=== PATIENT | female | born 1975 | race Caucasian/White ===

== ENCOUNTER 2019-03-26 23:27 | Inpatient (IN) | payer OTHER, SELFPAY ==
[2019-03-26] MEDS ORDERED: Adacel (T-DAP) 0.5 ML SYRINGE ONE (23:40)
[2019-03-26] MEDS ORDERED: Morphine 4 MG/ML VIAL ONE (23:40)
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
[2019-03-27 00:07] LABS: #Basophils 0.1 thou/uL (0.0-0.2); #Eosinphils 0.1 thou/uL (0.0-0.7); #Lymphocytes 3.2 thou/uL (1.20-3.40); #Neutrophils 13.2 thou/uL (1.40-6.50); %Basophils 0.4 % (0.0-1.0); %Eosinophils 0.4 % (0.0-10.0); %Monocytes 5.9 % (0.0-10.0); %Neutrophils 75.2 % (42.0-75.0); Hemoglobin 12.8 g/dL (12.0-16.0); Mean Corpuscular HGB CONC 35.5 g/dL (32.0-36.0); Mean Corpuscular Hemoglobin 31.8 pg (27.0-31.0); Mean Corpuscular Volume 89.6 fL (78.0-98.0); Mean Platelet Volume 6.9 fL (7.4-10.4); Platelet Count 328 thou/uL (130-400); Red Blood Cell (RBC) Count 4.03 mill/uL (4.20-5.40); White Blood Cell (WBC) Count 17.5 thou/uL (4.8-10.8)
[2019-03-27 00:11] LABS: BHCG - Serum Negative (NEGATIVE); Pregs Control Background? CLEAR/WHITE (CLR/WHITE); Pregs Control Bar Appear? YES (CONTROL BAR)
[2019-03-27 00:26] LABS: ALT (SGPT) 14 U/L (8-55); AST (SGOT) 21 U/L (5-34); Albumin 4.4 g/dL (3.5-5.0); Alkaline Phosphatase 45 U/L (40-150); Anion Gap 17 mmol/L (10-20); BUN (Urea Nitrogen) 12 mg/dL (7.0-18.7); Bilirubin, Total 0.2 mg/dL (0.2-1.2); Calc. Creatinine Clearance 0 mL/min (70-130); Calcium 9.1 mg/dL (7.8-10.44); Carbon Dioxide 20 mmol/L (22-29); Chloride 107 mmol/L (98-107); Estimated GFR-MDRD 69; Globulin 2.8 g/dL (2.4-3.5); Glucose 104 mg/dL (70-105); Potassium 3.6 mmol/L (3.5-5.1); Protein, Total 7.2 g/dL (6.0-8.3); Sodium 140 mmol/L (136-145)
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
[2019-03-27] MEDS ORDERED: Ondansetron ODT 4 MG TAB PO PRN (01:55)
[2019-03-27] MEDS ORDERED: Dextrose 50% Abboject 50 ML SYRINGE SLOW IVP PRN (01:55)
[2019-03-27] MEDS ORDERED: Promethazine HCl 25 MG/ML VIAL IM PRN ×3 (01:55→09:40)
[2019-03-27] MEDS ORDERED: Dextrose 5% in Water 1,000 ML IV PRN (01:55)
[2019-03-27] MEDS ORDERED: Ondansetron PF 4 MG/2 ML Vial IVP PRN (01:55)
[2019-03-27] MEDS ORDERED: Acetaminophen 1,000 MG in Premix Bag 1 BAG IVPB SCH ×2 (02:30→09:00)
[2019-03-27] MEDS ORDERED: Ketorolac Tromethamine 30 MG/ML VIAL IVP SCH ×2 (02:45→09:00)
[2019-03-27] MEDS: Morphine 2 MG/ML SYRINGE SLOW IVP PRN ×2 (02:53→19:08)
[2019-03-27] MEDS: Cyclobenzaprine 10 MG TAB PO PRN ×2 (02:54→16:36)
[2019-03-27] MEDS: Sodium Chloride 0.9% 1,000 ML IV SCH ×2 (02:56→15:07)
[2019-03-27 05:32] LABS: #Lymphocytes 1.6 thou/uL (1.20-3.40); #Monocytes 0.9 thou/uL (0.11-0.59); #Neutrophils 11.5 thou/uL (1.40-6.50); %Basophils 0.2 % (0.0-1.0); %Eosinophils 0.2 % (0.0-10.0); %Lymphocytes 11.6 % (21.0-51.0); %Monocytes 6.4 % (0.0-10.0); %Neutrophils 81.6 % (42.0-75.0); Hemoglobin 11.4 g/dL (12.0-16.0); Mean Corpuscular HGB CONC 34.8 g/dL (32.0-36.0); Mean Corpuscular Hemoglobin 31.1 pg (27.0-31.0); Mean Corpuscular Volume 89.6 fL (78.0-98.0); Mean Platelet Volume 6.9 fL (7.4-10.4); Platelet Count 311 thou/uL (130-400); RBC Distribution Width 11.1 % (11.5-14.5); Red Blood Cell (RBC) Count 3.67 mill/uL (4.20-5.40); White Blood Cell (WBC) Count 14.1 thou/uL (4.8-10.8)
[2019-03-27 05:46] LABS: Anion Gap 12 mmol/L (10-20); BUN (Urea Nitrogen) 11 mg/dL (7.0-18.7); Calc. Creatinine Clearance 0 mL/min (70-130); Calcium 8.7 mg/dL (7.8-10.44); Carbon Dioxide 24 mmol/L (22-29); Chloride 105 mmol/L (98-107); Estimated GFR-MDRD 76; Glucose 127 mg/dL (70-105); Potassium 4.4 mmol/L (3.5-5.1); Sodium 137 mmol/L (136-145)
[2019-03-27] MEDS ORDERED: CEFAZOLIN 1 GM VIAL SLOW IVP SCH (06:00)
[2019-03-27 06:43] VITALS: BMI 22.3
[2019-03-27] MEDS ORDERED: Fentanyl 100 MCG/2 ML VIAL ONE ×2 (06:57→07:53)
[2019-03-27] MEDS ORDERED: Midazolam HCl 2 mg/2 ml Vial ONE (06:57)
[2019-03-27] MEDS ORDERED: Lidocaine 2% Jelly 5 ML TUBE ONE (06:57)
[2019-03-27] MEDS ORDERED: CEFAZOLIN 2 GM in Premix Bag 1 BAG IVPB SCH (07:30)
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
[2019-03-27] MEDS: Acetaminophen 500 MG TAB PO SCH ×3 (07:57→21:53)
[2019-03-27] MEDS: Famotidine 20 MG TAB PO SCH ×2 (07:57→21:53)
[2019-03-27] MEDS ORDERED: ceFAZolin 1 GM/D5W 1 GM in Premix Bag 1 BAG IVPB SCH (08:00)
[2019-03-27] MEDS ORDERED: Promethazine HCl 25 MG/ML VIAL SLOW IVP PRN (09:40)
[2019-03-27] MEDS ORDERED: Ondansetron HCl/PF 4 MG/2 ML Vial IVP PRN (09:40)
[2019-03-27] MEDS ORDERED: Lidocaine 1% PF 5 ML VIAL ONE (10:20)
[2019-03-27] MEDS ORDERED: Succinylcholine Chloride 20 MG/ML 10 ml SYRINGE FS ONE (10:20)
[2019-03-27] MEDS ORDERED: Ondansetron PF 4 MG/2 ML Vial ONE (10:20)
[2019-03-27] MEDS ORDERED: PROPOFOL 200 MG/20 ML VIAL ONE (10:20)
[2019-03-27] MEDS ORDERED: Dexamethasone 20 MG/5 ML VIAL ONE (10:20)
--- NOTE | 2019-03-27 11:35 | OP ---
DATE OF PROCEDURE: 03/27/2019 PREOPERATIVE DIAGNOSIS: Open right fibular fracture. POSTOPERATIVE DIAGNOSIS: Open right fibular fracture with peroneus longus tendon disruption. ANESTHESIA: General. BLOOD LOSS: About 100. SPECIMENS: None. DRAINS: None. COMPLICATIONS: None. DESCRIPTION OF PROCEDURE: The patient was taken to the operating room, where general anesthesia was induced. She received Ancef preoperatively. Right leg was prepped and draped in the usual sterile fashion. I did not use the tourniquet, although it was put on the leg. I debrided areas of skin, which had become discolored and dusky and appeared like there would be nonviable. There was fat protruding from the wound. I removed fat and removed some muscular tissue, which had questionable viability and I exposed the fibula. There was a little bit of contamination of fibula. I used a rongeur to nibble off the ends of the fibular fracture proximally and distally. I then used 2 large bags of pulsatile lavage irrigation to make sure there was no further debris in the wound. I explored the wound and found the peroneus longus tendon was ruptured. I repaired this using #2-0 Ethibond in a modified Wu-type stitch with a good end-to-end repair. I then performed a multilayered complex closure of this laceration. Unfortunately, after my debridement, there was an area about 2 x 4 cm still open, which could not be closed. Postoperative plan is for wound VAC for a few days. We will consult Dr. Adiel Christine for possible split-thickness skin graft. She has fractures extending down towards her ankle joint. These can be treated without any internal fixation. She will be immobilized in a boot or a splint for the next at least 3 months. Job ID: [id number]
[2019-03-27] MEDS ORDERED: Ibuprofen 600 MG TAB PO PRN (13:15)
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
[2019-03-27] MEDS: traMADol HCl 50 MG TAB PO PRN ×2 (15:05→21:53)
[2019-03-27] MEDS: CEFAZOLIN 2 GM in Premix Bag 1 BAG IVPB SCH ×2 (16:26→23:44)
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
[2019-03-28] MEDS: Acetaminophen 500 MG TAB PO SCH ×4 (03:28→21:12)
[2019-03-28] MEDS: Thyroid 30 MG TAB PO SCH (06:55)
[2019-03-28] MEDS: CEFAZOLIN 2 GM in Premix Bag 1 BAG IVPB SCH ×2 (08:12→15:18)
[2019-03-28] MEDS: Famotidine 20 MG TAB PO SCH ×2 (08:17→21:12)
[2019-03-28] MEDS: Senokot S 8.6-50 MG TAB PO SCH ×2 (08:25→21:13)
[2019-03-28] MEDS ORDERED: Loratadine 10 MG TAB PO SCH (09:00)
[2019-03-28] MEDS: traMADol HCl 50 MG TAB PO PRN ×2 (11:39→19:21)
[2019-03-28] MEDS: Cyclobenzaprine 10 MG TAB PO PRN ×2 (11:41→21:13)
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
[2019-03-28] MEDS: Loratadine 10 MG TAB PO SCH (21:12)
[2019-03-29] MEDS: CEFAZOLIN 2 GM in Premix Bag 1 BAG IVPB SCH ×3 (00:46→16:30)
[2019-03-29] MEDS: traMADol HCl 50 MG TAB PO PRN ×3 (03:43→22:10)
[2019-03-29] MEDS: Acetaminophen 500 MG TAB PO SCH ×4 (03:43→20:50)
[2019-03-29] MEDS: Cyclobenzaprine 10 MG TAB PO PRN ×3 (05:34→21:22)
[2019-03-29] MEDS: Thyroid 30 MG TAB PO SCH (05:34)
[2019-03-29] MEDS: Senokot S 8.6-50 MG TAB PO SCH ×2 (08:29→20:50)
[2019-03-29] MEDS: Polyethylene Glycol 3350 17 GM Packet PO SCH (08:29)
[2019-03-29] MEDS: Famotidine 20 MG TAB PO SCH ×2 (08:29→20:50)
[2019-03-29] MEDS: Enoxaparin Sodium 40 MG/0.4 ML SYRINGE SC SCH (09:42)
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
[2019-03-29] MEDS: Morphine 2 MG/ML SYRINGE SLOW IVP PRN (17:12)
[2019-03-29] MEDS: Loratadine 10 MG TAB PO SCH (20:50)
[2019-03-30] MEDS: Acetaminophen 500 MG TAB PO SCH ×4 (02:59→20:13)
[2019-03-30] MEDS: Thyroid 30 MG TAB PO SCH (05:32)
[2019-03-30] MEDS: traMADol HCl 50 MG TAB PO PRN ×3 (05:32→20:14)
[2019-03-30] MEDS: Cyclobenzaprine 10 MG TAB PO PRN ×2 (09:29→17:45)
[2019-03-30] MEDS: Polyethylene Glycol 3350 17 GM Packet PO SCH (09:29)
[2019-03-30] MEDS: Senokot S 8.6-50 MG TAB PO SCH ×2 (09:29→20:13)
[2019-03-30] MEDS: Famotidine 20 MG TAB PO SCH ×2 (09:29→20:14)
--- NOTE | 2019-03-30 10:26 | PRG ---
DATE OF SERVICE: 03/30/2019 SUBJECTIVE: Ms. Carmona has no complaints. She is working on physical therapy. Dr. Christine is going to do washout, reexploration of this complex wound to her right lower extremity today. OBJECTIVE: VITAL SIGNS: She is afebrile. Vital signs are stable. ABDOMEN: Soft. CHEST: Clear. ASSESSMENT: Right lower extremity fracture with complex wound and exposed bone. PLAN: Dr. Christine to assess the wound in the operating room later on today. Job ID: [id number]
[2019-03-30] MEDS: Enoxaparin Sodium 40 MG/0.4 ML SYRINGE SC SCH (11:38)
[2019-03-30] MEDS: Loratadine 10 MG TAB PO SCH (20:14)
[2019-03-31] MEDS: Acetaminophen 500 MG TAB PO SCH ×3 (02:31→14:28)
[2019-03-31] MEDS: traMADol HCl 50 MG TAB PO PRN ×3 (02:32→15:48)
[2019-03-31] MEDS: Thyroid 30 MG TAB PO SCH (06:04)
[2019-03-31] MEDS: Cyclobenzaprine 10 MG TAB PO PRN ×2 (06:05→14:28)
[2019-03-31] MEDS: Polyethylene Glycol 3350 17 GM Packet PO SCH (09:01)
[2019-03-31] MEDS: Enoxaparin Sodium 40 MG/0.4 ML SYRINGE SC SCH (09:02)
[2019-03-31] MEDS: Famotidine 20 MG TAB PO SCH (09:02)
[2019-03-31] MEDS: Senokot S 8.6-50 MG TAB PO SCH (09:02)
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
[2019-03-31] MEDS ORDERED: Lidocaine 1% PF 5 ML VIAL ONE (13:59)
[2019-03-31] MEDS ORDERED: Dexamethasone 20 MG/5 ML VIAL ONE (13:59)
[2019-03-31] MEDS ORDERED: Ondansetron PF 4 MG/2 ML Vial ONE (13:59)
[2019-03-31] MEDS ORDERED: PROPOFOL 200 MG/20 ML VIAL ONE (13:59)
[2019-03-31] MEDS ORDERED: Ketorolac Tromethamine 30 MG/ML VIAL ONE (13:59)
[2019-03-31] MEDS ORDERED: Bupivacaine PF 0.5% 30 ML VIAL ONE (19:51)
[2019-03-31] MEDS ORDERED: Sodium Chloride 0.9% 10 ML ONE (19:52)
[2019-03-31] MEDS ORDERED: Thrombin 5000 UNITS/5 ML VIAL ONE ×2 (19:52→21:52)
[2019-03-31] MEDS ORDERED: Bacitracin Zinc Ointment 30 gm TUBE ONE (19:52)
[2019-03-31] MEDS ORDERED: Morphine 4 MG/ML VIAL ONE (20:21)
[2019-03-31] MEDS ORDERED: Fentanyl 100 MCG/2 ML VIAL ONE ×2 (22:43→23:57)
[2019-03-31] MEDS ORDERED: Neomycin-Polymyxin 1 ML AMP ONE (23:11)
[2019-04-01] MEDS ORDERED: Meperidine HCl/PF 25 MG/ML VIAL SLOW IVP PRN (00:29)
[2019-04-01] MEDS ORDERED: Morphine Sulfate 2 MG/ML SYRINGE SLOW IVP PRN (00:29)
[2019-04-01] MEDS ORDERED: Ondansetron HCl/PF 4 MG/2 ML Vial IVP PRN (00:29)
[2019-04-01] MEDS ORDERED: Promethazine HCl 25 MG/ML VIAL SLOW IVP PRN (00:29)
[2019-04-01] MEDS ORDERED: HYDROmorphone 2 MG/ML VIAL SLOW IVP PRN (00:29)
[2019-04-01] MEDS ORDERED: Promethazine HCl 25 MG/ML VIAL IM PRN (00:29)
[2019-04-01] MEDS ORDERED: PACU-Morphine 4MG/ML VIAL SLOW IVP PRN (00:29)
[2019-04-01] MEDS ORDERED: Fentanyl 100 MCG/2 ML VIAL ONE ×2 (00:36→00:55)
[2019-04-01] MEDS ORDERED: Promethazine HCl 25 MG/ML VIAL ONE (00:47)
[2019-04-01] MEDS: Acetaminophen 500 MG TAB PO SCH ×5 (01:37→23:58)
[2019-04-01] MEDS: Famotidine 20 MG TAB PO SCH (01:43)
[2019-04-01] MEDS: Loratadine 10 MG TAB PO SCH ×2 (01:44→20:20)
[2019-04-01] MEDS: Senokot S 8.6-50 MG TAB PO SCH ×3 (01:44→20:20)
[2019-04-01] MEDS: Morphine 2 MG/ML SYRINGE SLOW IVP PRN (02:04)
[2019-04-01] MEDS: Cyclobenzaprine 10 MG TAB PO PRN ×2 (04:09→10:33)
[2019-04-01] MEDS: CEFAZOLIN 1 GM in Sodium Chloride 0.9% 100 ML IVPB SCH ×3 (06:23→17:23)
[2019-04-01] MEDS: Thyroid 30 MG TAB PO SCH (06:23)
[2019-04-01] MEDS: Milk Of Magnesia 30 ML UDCUP PO SCH (07:15)
[2019-04-01] MEDS: Polyethylene Glycol 3350 17 GM Packet PO SCH (08:41)
[2019-04-01] MEDS: Enoxaparin Sodium 40 MG/0.4 ML SYRINGE SC SCH (08:44)
[2019-04-01] MEDS: Bisacodyl 10 MG SUPP PR SCH (08:45)
[2019-04-01] MEDS: traMADol HCl 50 MG TAB PO PRN (08:59)
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
[2019-04-01] MEDS: traMADol HCl 50 MG TAB PO SCH ×3 (12:42→23:58)
[2019-04-01] MEDS: Ibuprofen 600 MG TAB PO SCH ×2 (14:24→22:21)
[2019-04-01] MEDS: Gabapentin 300 MG CAP PO SCH ×2 (14:26→20:20)
[2019-04-01] MEDS ORDERED: Atorvastatin Calcium 10 MG TAB PO SCH (21:00)
[2019-04-02 04:20] VITALS: TEMP 98.7
[2019-04-02] MEDS: Acetaminophen 500 MG TAB PO SCH ×2 (05:09→12:13)
[2019-04-02] MEDS: traMADol HCl 50 MG TAB PO SCH ×2 (05:10→12:13)
[2019-04-02] MEDS: Ibuprofen 600 MG TAB PO SCH (05:11)
[2019-04-02] MEDS: Thyroid 30 MG TAB PO SCH (05:11)
[2019-04-02 07:59] VITALS: BP 119/79
[2019-04-02] MEDS: Enoxaparin Sodium 40 MG/0.4 ML SYRINGE SC SCH (08:17)
[2019-04-02] MEDS: Bisacodyl 10 MG SUPP PR SCH (08:17)
[2019-04-02] MEDS: Gabapentin 300 MG CAP PO SCH (08:18)
[2019-04-02] MEDS: Senokot S 8.6-50 MG TAB PO SCH (08:18)
[2019-04-02] MEDS: Polyethylene Glycol 3350 17 GM Packet PO SCH (08:18)
[2019-04-02] MEDS: Milk Of Magnesia 30 ML UDCUP PO SCH (08:21)
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
--- NOTE | 2019-04-03 11:50 | OP ---
DATE OF PROCEDURE: 03/31/2019 The surgery started on 03/30/2019 and ended on 03/31/2019. POSTOPERATIVE DIAGNOSIS: Right leg wound, complex. POSTOPERATIVE DIAGNOSIS: Right leg wound, complex. FINDINGS: Almost 8 x 3 cm wound. PROCEDURE PERFORMED: 1. Debridement of wound with closure of 8 cm and relocation of flap from more dorsal and distal. 2. Split-thickness skin graft, 7 x 3 cm from the ipsilateral right thigh. 3. Application of leg splint. TOURNIQUET TIME: None. ESTIMATED BLOOD LOSS: 10 mL. SPECIMENS: None. INDICATION: The patient had had open fibula fracture, treated in excellent fashion by my partner, Dr. Chaudhari, and wound was complex, could not be closed without undue tension, so we were consulted. We evaluated the wound. No gross infection found. Muscle appeared viable, but indeed there was absence of dermis and epidermis over the region described above. Thus, the procedure was indicated. DESCRIPTION OF PROCEDURE: After successful general endotracheal anesthesia, limb was prepped and draped. We then performed a time-out and the listed procedure matched the site, side, and procedure in the chart and on the consent. We then removed the sutures, inspected the underlying flap. We performed a small amount of wound edge debridement using excisional technique. Instrumentation used was 11 blade knife, Sigourney blade knife, tenotomy scissors, Adson's, curette, and 1 L of irrigation bulb syringe with antibiotics inside. The depth was down to include the fascia, but not to bone. We then took the flap, reclosed the 8 cm wound portion that could be closed without an undue tension and now slightly increased the wound size. Underlying muscle was viable, so there was no exposed bone, so we felt skin graft was indicated. We then made a measurement, outlined a graft on the anterior lateral thigh just beginning 10 cm above the patella going proximally. We used a power dermatome set at 0.020 thickness and performed the graft. We then covered the donor site with thrombin and Gelfoam, and then Tegaderm and Amor wrap. We then meshed it to 1 to 1.5, placed it over the area. We used appropriate gordon center to allow it to have benefit. We then bolstered this with bacitracin and Adaptic and stapled down ABD that was mineral oil soaked. Bulky dressing was applied, 4x4, Kerlix, and then we placed her in the splint, ankle in neutral position posterior. She left the operating room without evidence of anesthetic or operative complications. Job ID: [id number]
== END 2019-04-02 12:45 | disposition home or self-care (01) | DRG 464 ==
LOC: ERS 23:27 → SURG A 03-27 00:25
PROVIDERS: ADMIT Specialist; ATTEND Specialist
PROC: 0LQN0ZZ Repair Right Lower Leg Tendon, Open Approach (ICD-10-PCS; 2019-03-27)
PROC: 2W3QX1Z Immobilization of Right Lower Leg using Splint (ICD-10-PCS; 2019-03-27)
PROC: 0HXKXZZ Transfer Right Lower Leg Skin, External Approach (ICD-10-PCS; principal; 2019-03-31)
PROC: 0JBN0ZZ Excision of Right Lower Leg Subcutaneous Tissue and Fascia, Open Approach (ICD-10-PCS; 2019-03-31)
DX: S82.401A Unspecified fracture of shaft of right fibula, initial encounter for closed fracture (principal); T81.30XA Disruption of wound, unspecified, initial encounter; E03.9 Hypothyroidism, unspecified; E78.5 Hyperlipidemia, unspecified; J30.2 Other seasonal allergic rhinitis; Y92.9 Unspecified place or not applicable; Z98.51 Tubal ligation status; Z90.49 Acquired absence of other specified parts of digestive tract; Z88.1 Allergy status to other antibiotic agents; V86.69XA Passenger of other special all-terrain or other off-road motor vehicle injured in nontraffic accident, initial encounter; Z88.8 Allergy status to other drugs, medicaments and biological substances; Z79.2 Long term (current) use of antibiotics; Z79.82 Long term (current) use of aspirin; Y83.8 Other surgical procedures as the cause of abnormal reaction of the patient, or of later complication, without mention of misadventure at the time of the procedure
CPT/HCPCS: 36415; 80048; 80053; 80307; 84703; 85025; 86850; 86900; 86901; 90471; 90715; 93005; 94760; 96365; 96375; G0390; J0131; J0690; J1100; J1650; J1885; J2001; J2250; J2270; J2405; J2550; J2704; J3010; J3490; S0020

== ENCOUNTER 2019-04-08 21:58 | Inpatient (IN) | payer SELFPAY ==
[2019-04-08 22:49] LABS: #Basophils 0.1 thou/uL (0.0-0.2); #Eosinphils 0.2 thou/uL (0.0-0.7); #Lymphocytes 2.3 thou/uL (1.20-3.40); #Monocytes 0.7 thou/uL (0.11-0.59); #Neutrophils 5.9 thou/uL (1.40-6.50); %Basophils 0.7 % (0.0-1.0); %Eosinophils 1.7 % (0.0-10.0); %Lymphocytes 25.6 % (21.0-51.0); %Monocytes 7.3 % (0.0-10.0); %Neutrophils 64.7 % (42.0-75.0); Hemoglobin 10.8 g/dL (12.0-16.0); Mean Corpuscular HGB CONC 34.8 g/dL (32.0-36.0); Mean Corpuscular Hemoglobin 30.7 pg (27.0-31.0); Mean Corpuscular Volume 88.2 fL (78.0-98.0); Mean Platelet Volume 6.1 fL (7.4-10.4); Platelet Count 453 thou/uL (130-400); RBC Distribution Width 10.9 % (11.5-14.5); Red Blood Cell (RBC) Count 3.52 mill/uL (4.20-5.40); White Blood Cell (WBC) Count 9.1 thou/uL (4.8-10.8)
[2019-04-08] MEDS ORDERED: Piperacillin/Tazobactam 4.5 GM VIAL ONE (23:09)
[2019-04-08 23:18] LABS: ALT (SGPT) 19 U/L (8-55); AST (SGOT) 21 U/L (5-34); Albumin 4.2 g/dL (3.5-5.0); Alkaline Phosphatase 59 U/L (40-150); Anion Gap 16 mmol/L (10-20); BUN (Urea Nitrogen) 11 mg/dL (7.0-18.7); Bilirubin, Total 0.3 mg/dL (0.2-1.2); Calc. Creatinine Clearance 0 mL/min (70-130); Calcium 9.6 mg/dL (7.8-10.44); Carbon Dioxide 23 mmol/L (22-29); Chloride 103 mmol/L (98-107); Estimated GFR-MDRD 66; Globulin 3.1 g/dL (2.4-3.5); Glucose 93 mg/dL (70-105); Potassium 4.3 mmol/L (3.5-5.1); Protein, Total 7.3 g/dL (6.0-8.3); Sodium 138 mmol/L (136-145)
--- NOTE | 2019-04-08 23:41 | ULT ---
RIGHT LOWER EXTREMITY VENOUS DUPLEX EXAM: 04/08/19 HISTORY: Right lower leg redness, pain and edema. Real time color Doppler evaluation of the right lower extremity was performed from groin to calf incl uding evaluation of area of patient's pain in the calf which shows some edema change. The common femo ral superficial and profunda femoral, saphenous, popliteal, and posterior tibial veins are normal in appearance. There is normal compressibility and augmentation. IMPRESSION: No evidence of DVT of the right lower extremity. POS: OFF
[2019-04-09] MEDS ORDERED: Morphine 4 MG/ML VIAL ONE
[2019-04-09] MEDS ORDERED: Morphine 4 MG/ML VIAL SLOW IVP PRN ×2 (02:04→05:26)
[2019-04-09] MEDS ORDERED: Sodium Chloride 0.9% 1,000 ML IV SCH (02:15)
[2019-04-09 02:37] VITALS: BMI 24.7
[2019-04-09] MEDS ORDERED: Ibuprofen 600 MG TAB PO PRN (05:26)
[2019-04-09] MEDS: Acetaminophen 500 MG TAB PO SCH ×4 (05:42→23:51)
[2019-04-09] MEDS ORDERED: Piperacillin/Tazobactam 3.375 GM in Sodium Chloride 0.9% 100 ML IVPB SCH (06:00)
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
[2019-04-09] MEDS: Aspirin Chewable 81 MG TAB PO SCH ×2 (08:44→20:50)
[2019-04-09] MEDS: Polyethylene Glycol 3350 17 GM Packet PO SCH (08:44)
[2019-04-09] MEDS: Gabapentin 300 MG CAP PO SCH ×3 (08:44→20:50)
[2019-04-09] MEDS: Thyroid 30 MG TAB PO SCH (08:47)
[2019-04-09] MEDS: Cyclobenzaprine 10 MG TAB PO PRN (08:55)
[2019-04-09] MEDS ORDERED: Vancomycin HCl 1 GM in Premix Bag 1 BAG IVPB SCH (11:00)
[2019-04-09] MEDS: Vancomycin HCl 750 MG in Sodium Chloride 0.9% 250 ML 250 ML IVPB SCH ×2 (12:02→23:51)
[2019-04-09] MEDS: traMADol HCl 50 MG TAB PO PRN ×3 (13:08→23:50)
[2019-04-09] MEDS: Piperacillin/Tazobactam 4.5 GM in Sodium Chloride 0.9% 100 ML IVPB SCH ×2 (16:31→20:51)
[2019-04-09] MEDS: Ibuprofen 200 MG TAB PO PRN (16:34)
[2019-04-09] MEDS ORDERED: Fiorinal 325/50/40 mg Tablet PO PRN (17:56)
--- NOTE | 2019-04-09 17:59 | PDOC.PN ---
- Subjective Encounter Start Date: 04/09/19 Encounter Start Time: 14:20 Ms. Carmona was seen today in follow-up of cellulitis of the right lower extremity. She notes some pain in the right leg and ankle- from the fracture, but also has a headache. Otherwise no complaints. - Objective MAR Reviewed: Yes Vital Signs & Weight: Vital Signs (12 hours) Temp Pulse Resp BP Pulse Ox 04/09/19 16:51 98.9 F 86 14 117/75 94 L 04/09/19 12:20 98.8 F 82 16 114/75 98 04/09/19 08:29 98.3 F 77 16 109/72 98 04/09/19 08:00 98 Weight Weight 140 lb I&O: 04/08/19 04/09/19 04/10/19 06:59 06:59 06:59 Intake Total 440 Balance 440 Result Diagrams: 04/08/19 22:24 04/08/19 22:24 Phys Exam - Physical Examination HEENT: PERRLA Respiratory: no wheezing, no rales, no rhonchi, clear to auscultation bilateral Cardiovascular: RRR, no significant murmur, no rub Gastrointestinal: soft, non-tender, no distention, positive bowel sounds Musculoskeletal: pulses present, edema present + swelling and erythema of the dorsum of the right foot + sweling of the right calf, no obvious drainage Dx/Plan (1) Cellulitis of leg, right Code(s): L03.115 - CELLULITIS OF RIGHT LOWER LIMB Status: Acute (2) Right tibial fracture Code(s): S82.201A - UNSP FRACTURE OF SHAFT OF RIGHT TIBIA, INIT FOR CLOS FX Status: Acute (3) Hypothyroidism Code(s): E03.9 - HYPOTHYROIDISM, UNSPECIFIED Status: Acute - Plan * Cellulitis of the right lower extremity- will continue Vancomycin and Zosyn ( wound culture is growing a gram negative organism ) * Await evaluation from Dr. Christine * Headache- may be related to morphine- will give a trial of Fiorinal * Hypothyroidism- she appears clinically euthyroid- will continue [place] thyroid.
[2019-04-09] MEDS: Simvastatin 20 MG TAB PO SCH (20:50)
[2019-04-10] MEDS ORDERED: Senokot S 8.6-50 MG TAB PO SCH (00:15)
[2019-04-10] MEDS: Ibuprofen 200 MG TAB PO PRN ×2 (03:18→15:05)
[2019-04-10] MEDS: Piperacillin/Tazobactam 4.5 GM in Sodium Chloride 0.9% 100 ML IVPB SCH ×4 (03:18→20:42)
[2019-04-10] MEDS: Cyclobenzaprine 10 MG TAB PO PRN ×2 (03:18→15:05)
[2019-04-10] MEDS: traMADol HCl 50 MG TAB PO PRN ×3 (05:56→21:24)
[2019-04-10] MEDS: Acetaminophen 500 MG TAB PO SCH ×4 (05:57→21:23)
[2019-04-10] MEDS: Aspirin Chewable 81 MG TAB PO SCH ×2 (08:11→20:41)
[2019-04-10] MEDS: Polyethylene Glycol 3350 17 GM Packet PO SCH (08:11)
[2019-04-10] MEDS: Thyroid 30 MG TAB PO SCH (08:12)
[2019-04-10] MEDS: Gabapentin 300 MG CAP PO SCH ×3 (08:12→20:42)
[2019-04-10 09:39] LABS: #Eosinphils 0.2 thou/uL (0.0-0.7); #Lymphocytes 1.8 thou/uL (1.20-3.40); #Monocytes 0.6 thou/uL (0.11-0.59); #Neutrophils 4.4 thou/uL (1.40-6.50); %Basophils 0.1 % (0.0-1.0); %Eosinophils 2.8 % (0.0-10.0); %Lymphocytes 26.1 % (21.0-51.0); %Monocytes 8.2 % (0.0-10.0); %Neutrophils 62.8 % (42.0-75.0); Hemoglobin 9.9 g/dL (12.0-16.0); Mean Corpuscular HGB CONC 34.3 g/dL (32.0-36.0); Mean Corpuscular Hemoglobin 30.9 pg (27.0-31.0); Mean Corpuscular Volume 90.2 fL (78.0-98.0); Platelet Count 410 thou/uL (130-400); RBC Distribution Width 10.9 % (11.5-14.5); Red Blood Cell (RBC) Count 3.21 mill/uL (4.20-5.40); White Blood Cell (WBC) Count 7.1 thou/uL (4.8-10.8)
[2019-04-10] MEDS: Vancomycin HCl 1.25 GM in Sodium Chloride 0.9% 250 ML 250 ML IVPB SCH (11:41)
[2019-04-10] MEDS ORDERED: Ondansetron PF 4 MG/2 ML Vial ONE (13:45)
[2019-04-10] MEDS ORDERED: Dexamethasone 20 MG/5 ML VIAL ONE (13:45)
[2019-04-10] MEDS ORDERED: Ketorolac Tromethamine 30 MG/ML VIAL ONE (13:45)
[2019-04-10] MEDS ORDERED: PROPOFOL 200 MG/20 ML VIAL ONE (13:45)
--- NOTE | 2019-04-10 17:24 | PDOC.PN ---
- Subjective Encounter Start Date: 04/10/19 Encounter Start Time: 17:00 Subjective: f/u for RLE cellulitis on Zosyn/Vancomycin. Plan for debridement -: today per Ortho surgery. Feels much better overall. - Objective MAR Reviewed: Yes Vital Signs & Weight: Vital Signs (12 hours) Temp Pulse Resp BP Pulse Ox 04/10/19 07:52 96.9 F L 84 16 120/75 97 Weight Weight 140 lb I&O: 04/09/19 04/10/19 04/11/19 06:59 06:59 06:59 Intake Total 680 Balance 680 Result Diagrams: 04/10/19 09:17 04/08/19 22:24 Additional Labs: Microbiology 04/08/19 22:40 Venous blood - Left Arm Blood Culture - Preliminary NO GROWTH AT 48 HOURS 04/08/19 22:40 Leg - Pending Bacterial Culture - Preliminary Aeromonas hydrophila/caviae Serratia marcescens 04/08/19 22:24 Venous blood - Right Arm Blood Culture - Preliminary NO GROWTH AT 48 HOURS Phys Exam - Physical Examination Constitutional: NAD HEENT: PERRLA, sclera anicteric, oral pharynx no lesions Neck: no nodes, no JVD, supple, full ROM Respiratory: no wheezing, no rales, no rhonchi, clear to auscultation bilateral S1, S2 Cardiovascular: RRR, no significant murmur, no rub, gallop Gastrointestinal: soft, non-tender, no distention, positive bowel sounds RLE with FABY wrap in place Musculoskeletal: no edema, pulses present Neurological: normal sensation, moves all 4 limbs Psychiatric: A&O x 3 Skin: normal turgor, cap refill <2 seconds Dx/Plan (1) Cellulitis of leg, right Code(s): L03.115 - CELLULITIS OF RIGHT LOWER LIMB Status: Acute Comment: Continue Vanc/Zosyn, local wound care, plan for debridement today (2) Right tibial fracture Code(s): S82.201A - UNSP FRACTURE OF SHAFT OF RIGHT TIBIA, INIT FOR CLOS FX Status: Acute Comment: Pain control, local WCT (3) Hypothyroidism Code(s): E03.9 - HYPOTHYROIDISM, UNSPECIFIED Status: Chronic Comment: Continue [place] Thyroid 30mg daily (4) Normocytic anemia Code(s): D64.9 - ANEMIA, UNSPECIFIED Status: Acute Comment: Stable currently , serial H/H - Plan continue antibiotics, social worker clinical Stable overall -: Plan for local debridement of RLE -: Pain control as clinically indicated -: Continue Vanc/Zosyn -: Appreciated Ortho assistance * .
[2019-04-10] MEDS ORDERED: Bupivacaine PF 0.5% 30 ML VIAL ONE (18:02)
[2019-04-10] MEDS ORDERED: Bacitracin Zinc Ointment 30 gm TUBE ONE (18:02)
[2019-04-10] MEDS ORDERED: Sodium Chloride 0.9% 30 ML ONE (18:02)
[2019-04-10] MEDS ORDERED: Sodium Chloride 0.9% 20 ML ONE (18:12)
[2019-04-10] MEDS ORDERED: Midazolam HCl 2 mg/2 ml Vial ONE (18:23)
[2019-04-10] MEDS ORDERED: Fentanyl 100 MCG/2 ML VIAL ONE ×2 (18:29→18:34)
[2019-04-10] MEDS ORDERED: Promethazine HCl 25 MG/ML VIAL ONE (18:35)
[2019-04-10] MEDS ORDERED: HYDROmorphone 2 MG/ML VIAL ONE (18:35)
[2019-04-10] MEDS ORDERED: Promethazine HCl 25 MG/ML VIAL IM PRN (19:47)
[2019-04-10] MEDS ORDERED: HYDROmorphone 2 MG/ML VIAL SLOW IVP PRN (19:47)
[2019-04-10] MEDS ORDERED: Ondansetron HCl/PF 4 MG/2 ML Vial IVP PRN (19:47)
[2019-04-10] MEDS ORDERED: Promethazine HCl 25 MG/ML VIAL SLOW IVP PRN (19:47)
[2019-04-10] MEDS ORDERED: PACU-Morphine 4MG/ML VIAL SLOW IVP PRN (19:47)
[2019-04-10] MEDS: Meperidine HCl/PF 25 MG/ML VIAL IM PRN (20:36)
[2019-04-10] MEDS: Simvastatin 20 MG TAB PO SCH (20:41)
[2019-04-11] MEDS: Ibuprofen 200 MG TAB PO PRN
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
[2019-04-11] MEDS: Piperacillin/Tazobactam 4.5 GM in Sodium Chloride 0.9% 100 ML IVPB SCH ×4 (03:09→19:36)
[2019-04-11] MEDS: Meperidine HCl/PF 25 MG/ML VIAL IM PRN ×2 (03:26→22:29)
[2019-04-11] MEDS: traMADol HCl 50 MG TAB PO PRN ×3 (05:43→17:52)
[2019-04-11] MEDS: Acetaminophen 500 MG TAB PO SCH ×3 (05:43→17:52)
[2019-04-11] MEDS: Gabapentin 300 MG CAP PO SCH ×3 (07:37→19:36)
[2019-04-11] MEDS: Polyethylene Glycol 3350 17 GM Packet PO SCH (07:37)
[2019-04-11] MEDS: Aspirin Chewable 81 MG TAB PO SCH ×2 (07:37→19:35)
[2019-04-11] MEDS: Thyroid 30 MG TAB PO SCH (07:37)
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
[2019-04-11] MEDS: Vancomycin HCl 1.25 GM in Sodium Chloride 0.9% 250 ML 250 ML IVPB SCH ×2 (11:43)
[2019-04-11] MEDS: Cyclobenzaprine 10 MG TAB PO PRN ×2 (16:41)
[2019-04-11] MEDS: Ondansetron ODT 4 MG TAB PO PRN (18:14)
[2019-04-11] MEDS: Simvastatin 20 MG TAB PO SCH (19:36)
[2019-04-12] MEDS: traMADol HCl 50 MG TAB PO PRN ×3 (00:24→15:14)
[2019-04-12] MEDS: Vancomycin HCl 1.25 GM in Sodium Chloride 0.9% 250 ML 250 ML IVPB SCH ×2 (00:26→12:05)
[2019-04-12] MEDS: Acetaminophen 500 MG TAB PO SCH ×4 (00:26→17:49)
[2019-04-12] MEDS: Piperacillin/Tazobactam 4.5 GM in Sodium Chloride 0.9% 100 ML IVPB SCH ×2 (02:37→08:23)
[2019-04-12] MEDS: Meperidine HCl/PF 25 MG/ML VIAL IM PRN ×3 (04:45→22:33)
[2019-04-12] MEDS: Aspirin Chewable 81 MG TAB PO SCH ×2 (08:22→19:50)
[2019-04-12] MEDS: Gabapentin 300 MG CAP PO SCH ×3 (08:23→19:50)
[2019-04-12] MEDS: Polyethylene Glycol 3350 17 GM Packet PO SCH (08:31)
[2019-04-12] MEDS: Thyroid 30 MG TAB PO SCH (08:50)
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
[2019-04-12] MEDS: Saccharomyces boulardii 250 MG CAP PO SCH (15:26)
[2019-04-12] MEDS ORDERED: Saccharomyces boulardii 250 MG CAP PO SCH (16:00)
[2019-04-12] MEDS: Simvastatin 20 MG TAB PO SCH (19:51)
[2019-04-12] MEDS: Ondansetron ODT 4 MG TAB PO PRN (21:30)
[2019-04-13 00:01] LABS: Vancomycin, Trough 15.2 ug/mL
[2019-04-13] MEDS: Acetaminophen 500 MG TAB PO SCH ×4 (00:18→19:20)
[2019-04-13] MEDS: Vancomycin HCl 1.25 GM in Sodium Chloride 0.9% 250 ML 250 ML IVPB SCH ×2 (00:18→14:03)
[2019-04-13] MEDS: Ondansetron ODT 4 MG TAB PO PRN (08:42)
[2019-04-13] MEDS: Gabapentin 300 MG CAP PO SCH ×3 (09:27→20:32)
[2019-04-13] MEDS: Thyroid 30 MG TAB PO SCH (09:27)
[2019-04-13] MEDS: Aspirin Chewable 81 MG TAB PO SCH ×2 (09:27→20:32)
[2019-04-13] MEDS: Polyethylene Glycol 3350 17 GM Packet PO SCH (09:27)
[2019-04-13] MEDS ORDERED: Promethazine 25 MG TAB PO PRN (14:33)
[2019-04-13] MEDS ORDERED: Scopolamine 1.5 mg/72 hour Patch TD SCH (20:00)
[2019-04-13] MEDS: Simvastatin 20 MG TAB PO SCH (20:32)
[2019-04-13] MEDS: Saccharomyces boulardii 250 MG CAP PO SCH (20:32)
[2019-04-13] MEDS: Cyclobenzaprine 10 MG TAB PO PRN (20:33)
[2019-04-13] MEDS: traMADol HCl 50 MG TAB PO PRN (20:33)
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
[2019-04-14] MEDS: Acetaminophen 500 MG TAB PO SCH ×4 (00:38→18:03)
[2019-04-14 05:40] LABS: #Eosinphils 0.2 thou/uL (0.0-0.7); #Lymphocytes 2.1 thou/uL (1.20-3.40); #Monocytes 0.6 thou/uL (0.11-0.59); #Neutrophils 4.4 thou/uL (1.40-6.50); %Basophils 0.6 % (0.0-1.0); %Eosinophils 2.6 % (0.0-10.0); %Lymphocytes 28.5 % (21.0-51.0); %Monocytes 7.8 % (0.0-10.0); %Neutrophils 60.6 % (42.0-75.0); Hemoglobin 10.6 g/dL (12.0-16.0); Mean Corpuscular HGB CONC 34.5 g/dL (32.0-36.0); Mean Corpuscular Hemoglobin 30.8 pg (27.0-31.0); Mean Corpuscular Volume 89.4 fL (78.0-98.0); Mean Platelet Volume 6.1 fL (7.4-10.4); Platelet Count 488 thou/uL (130-400); RBC Distribution Width 11.3 % (11.5-14.5); Red Blood Cell (RBC) Count 3.43 mill/uL (4.20-5.40); White Blood Cell (WBC) Count 7.3 thou/uL (4.8-10.8)
[2019-04-14] MEDS: Thyroid 30 MG TAB PO SCH (11:07)
[2019-04-14] MEDS: Saccharomyces boulardii 250 MG CAP PO SCH ×2 (11:07→21:07)
[2019-04-14] MEDS: Polyethylene Glycol 3350 17 GM Packet PO SCH (11:07)
[2019-04-14] MEDS: Gabapentin 300 MG CAP PO SCH ×3 (11:07→21:07)
[2019-04-14] MEDS: Aspirin Chewable 81 MG TAB PO SCH ×2 (11:07→21:07)
[2019-04-14] MEDS: Cyclobenzaprine 10 MG TAB PO PRN ×2 (13:54→21:07)
[2019-04-14] MEDS: Meperidine HCl/PF 25 MG/ML VIAL IM PRN (13:54)
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
[2019-04-14] MEDS: Simvastatin 20 MG TAB PO SCH (21:06)
[2019-04-14] MEDS: traMADol HCl 50 MG TAB PO PRN (21:07)
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
[2019-04-15] MEDS: Acetaminophen 500 MG TAB PO SCH ×5 (00:38→23:17)
[2019-04-15] MEDS: Meperidine HCl/PF 25 MG/ML VIAL IM PRN (02:19)
[2019-04-15] MEDS: Saccharomyces boulardii 250 MG CAP PO SCH ×2 (08:44→21:15)
[2019-04-15] MEDS: Gabapentin 300 MG CAP PO SCH ×3 (08:45→21:15)
[2019-04-15] MEDS: Polyethylene Glycol 3350 17 GM Packet PO SCH (08:45)
[2019-04-15] MEDS: Thyroid 30 MG TAB PO SCH (08:45)
[2019-04-15] MEDS ORDERED: Dexamethasone 20 MG/5 ML VIAL ONE (09:51)
[2019-04-15] MEDS ORDERED: PROPOFOL 200 MG/20 ML VIAL ONE (09:51)
[2019-04-15] MEDS ORDERED: Lidocaine 1% PF 5 ML VIAL ONE (09:51)
[2019-04-15] MEDS ORDERED: Ondansetron PF 4 MG/2 ML Vial ONE (09:51)
[2019-04-15] MEDS: Cyclobenzaprine 10 MG TAB PO PRN (10:34)
[2019-04-15] MEDS: traMADol HCl 50 MG TAB PO PRN ×2 (10:34→15:37)
[2019-04-15] MEDS: Aspirin Chewable 81 MG TAB PO SCH ×2 (12:08→21:15)
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
[2019-04-15] MEDS ORDERED: Bacitracin Zinc Ointment 30 gm TUBE ONE (17:01)
[2019-04-15] MEDS ORDERED: Bupivacaine PF 0.5% 30 ML VIAL ONE (17:01)
[2019-04-15] MEDS ORDERED: Thrombin 5000 UNITS/5 ML VIAL ONE (17:01)
[2019-04-15] MEDS ORDERED: Sodium Chloride 0.9% 30 ML ONE (17:01)
[2019-04-15] MEDS ORDERED: Fentanyl 100 MCG/2 ML VIAL ONE ×2 (17:28→19:37)
[2019-04-15] MEDS ORDERED: Midazolam HCl 2 mg/2 ml Vial ONE (17:28)
[2019-04-15] MEDS ORDERED: Tobramycin 80 MG/2 ML VIAL ONE ×2 (18:26→18:27)
[2019-04-15] MEDS ORDERED: Tobramycin Sulfate 1.2 GM VIAL ONE (18:26)
[2019-04-15] MEDS ORDERED: Promethazine HCl 25 MG/ML VIAL IM PRN (19:30)
[2019-04-15] MEDS ORDERED: Promethazine HCl 25 MG/ML VIAL SLOW IVP PRN (19:30)
[2019-04-15] MEDS ORDERED: Ondansetron HCl/PF 4 MG/2 ML Vial IVP PRN (19:30)
[2019-04-15] MEDS: Simvastatin 20 MG TAB PO SCH (21:15)
[2019-04-16] MEDS: traMADol HCl 50 MG TAB PO PRN ×3 (01:17→20:22)
--- NOTE | 2019-04-16 02:01 | OP ---
DATE OF PROCEDURE: 04/15/2019 PREOPERATIVE DIAGNOSIS: Right leg 18 x 7 cm wound with no gross infection. POSTOPERATIVE DIAGNOSIS: Right leg 18 x 7 cm wound with no gross infection. PROCEDURES PERFORMED: 1. Debridement of wound deep including wound, muscle, bone and old split-thickness skin graft. 2. Application of tobramycin beads dissolvable. 3. Application of wound VAC, Portillo and Nephew second-generation. SPECIMEN REMOVED: Culture wound and debridement. ESTIMATED FLUID LOSS: Less than 20 mL. TOURNIQUET TIME: None. FINDINGS: No gross infection in any layer. There was filled up muscle to cover the bone and there was no at this point exposed tendon. DESCRIPTION OF PROCEDURE: After successful general LMA technique, the limb was prepped and draped. Time-out was done appropriately. We prepped entire limb and it was prepared using a sterile tourniquet, but as soon as we unroofed the wound, we realized that the skin graft was necrotic. There was a 3 cm x 2 cm area of necrotic muscle had been removed, so it was not a completely clean wound. For this reason, we performed the debridement using the following techniques: 1. Excisional. 2. Depth was down to include bone where we used curette, [place] blade, 11 blade knife, tenotomy scissors, Adson's, Crile, hemostats, [place] clamps, and irrigation with 3 L normal saline and Pulsavac with antibiotics inside. 3. The depth was as listed down to include bone. 4. No gross infection. 5. It was excisional technique. Then, once the wound was clean, we obtained hemostasis, we then mixed on the back table tobramycin antibiotics into the dissolvable because she had a gram-negative Serratia marcescens sensitive to this antibiotic family. It was packed around the bone underneath the muscle and we just closed enough of that muscle flap to hold the antibiotic beads inside. We then placed a white sponge over the muscle and black sponge over the white sponge and had appropriately excellent suction with the Portillo and Nephew second generation VAC type system. A short-leg splint was applied and the patient left the operating room without evidence of anesthetic or operative complication. Job ID: [id number]
[2019-04-16] MEDS: Acetaminophen 500 MG TAB PO SCH ×3 (05:33→17:00)
[2019-04-16] MEDS: Cyclobenzaprine 10 MG TAB PO PRN ×3 (05:35→20:22)
[2019-04-16] MEDS: Gabapentin 300 MG CAP PO SCH ×3 (08:02→20:22)
[2019-04-16] MEDS: Aspirin Chewable 81 MG TAB PO SCH ×2 (08:02→20:22)
[2019-04-16] MEDS: Thyroid 30 MG TAB PO SCH (08:02)
[2019-04-16] MEDS: Saccharomyces boulardii 250 MG CAP PO SCH ×2 (08:02→20:22)
[2019-04-16] MEDS: Polyethylene Glycol 3350 17 GM Packet PO SCH (08:03)
--- NOTE | 2019-04-16 12:27 | PDOC.PN ---
- Subjective Encounter Start Date: 04/16/19 Encounter Start Time: 12:25 Subjective: Admitted with worsening right leg pain and swelling. -: Had R open fibular fracture with open wound s/p debridement and graft -: found to have wound infection nad cellulitis s/p debridement. Feeling zehra - Objective Vital Signs & Weight: Vital Signs (12 hours) Temp Pulse Resp BP Pulse Ox 04/16/19 08:02 97 04/16/19 07:34 98.3 F 79 18 101/59 L 97 04/16/19 01:10 76 108/60 Weight Admit Weight 140 lb Weight 140 lb I&O: 04/15/19 04/16/19 04/17/19 06:59 06:59 06:59 Intake Total 720 990 Balance 720 990 Result Diagrams: 04/14/19 04:55 04/08/19 22:24 Phys Exam - Physical Examination Constitutional: NAD HEENT: PERRLA, moist MMs Neck: no JVD, supple Respiratory: no wheezing, no rales, no rhonchi Cardiovascular: RRR, no significant murmur Gastrointestinal: soft, non-tender, no distention, positive bowel sounds Musculoskeletal: pulses present Right leg and foot covered with dressing/splint Neurological: non-focal, moves all 4 limbs Psychiatric: normal affect, A&O x 3 Dx/Plan (1) Wound infection Code(s): T14.8XXA - OTHER INJURY OF UNSPECIFIED BODY REGION, INITIAL ENCOUNTER; L08.9 - LOCAL INFECTION OF THE SKIN AND SUBCUTANEOUS TISSUE, UNSP Status: Acute (2) Cellulitis of leg, right Code(s): L03.115 - CELLULITIS OF RIGHT LOWER LIMB Status: Acute Comment: Continue Levaquin, s/p I&D due to abscess POD #5, superficial, deep and bone cx showing Serratia spp and aeromonas hydrophila, contine wound vac application, d/ c Vancomycin, plan for debridement 04/15/19 with resection of skin graft due to necrosis and application of abx beads in wound (3) Normocytic anemia Code(s): D64.9 - ANEMIA, UNSPECIFIED Status: Acute Comment: Stable currently , serial H/H (4) Open right fibular fracture Code(s): S82.401B - UNSP FRACTURE OF SHAFT OF R FIBULA, INIT FOR OPN FX TYPE I/ 2 Status: Acute Qualifiers: Fracture morphology: comminuted Comment: s/p open fibular fx s/p surgical decompression, local wound care, pain control, continue Levaquin with wound vac therapy, local WCT (5) Hypothyroidism Code(s): E03.9 - HYPOTHYROIDISM, UNSPECIFIED Status: Chronic Comment: Continue [place] Thyroid 30mg daily - Plan Continue current antibiotics. -: Get repeat CBC and BMP in the am. -: Analgesic as needed to continue. -: Debridement and wound care as per plastic. * .
[2019-04-16] MEDS: Scopolamine 1.5 mg/72 hour Patch TD SCH (12:58)
[2019-04-16] MEDS: Simvastatin 20 MG TAB PO SCH (20:22)
[2019-04-16 20:31] LABS: #Basophils 0.1 thou/uL (0.0-0.2); #Eosinphils 0.2 thou/uL (0.0-0.7); #Lymphocytes 3.6 thou/uL (1.20-3.40); #Monocytes 0.7 thou/uL (0.11-0.59); #Neutrophils 5.6 thou/uL (1.40-6.50); %Basophils 0.9 % (0.0-1.0); %Eosinophils 1.7 % (0.0-10.0); %Lymphocytes 35.2 % (21.0-51.0); %Monocytes 6.8 % (0.0-10.0); %Neutrophils 55.4 % (42.0-75.0); Hemoglobin 10.9 g/dL (12.0-16.0); Mean Corpuscular HGB CONC 34.3 g/dL (32.0-36.0); Mean Corpuscular Volume 90.4 fL (78.0-98.0); Mean Platelet Volume 6.2 fL (7.4-10.4); Platelet Count 543 thou/uL (130-400); RBC Distribution Width 11.5 % (11.5-14.5); Red Blood Cell (RBC) Count 3.54 mill/uL (4.20-5.40); White Blood Cell (WBC) Count 10.1 thou/uL (4.8-10.8)
[2019-04-16 20:50] LABS: Anion Gap 15 mmol/L (10-20); BUN (Urea Nitrogen) 15 mg/dL (7.0-18.7); Calc. Creatinine Clearance 73 mL/min (70-130); Calcium 9.4 mg/dL (7.8-10.44); Carbon Dioxide 24 mmol/L (22-29); Chloride 103 mmol/L (98-107); Estimated GFR-MDRD 61; Glucose 89 mg/dL (70-105); Potassium 3.8 mmol/L (3.5-5.1); Sodium 138 mmol/L (136-145)
[2019-04-17] MEDS: Acetaminophen 500 MG TAB PO SCH ×4 (00:34→17:12)
[2019-04-17] MEDS: traMADol HCl 50 MG TAB PO PRN ×3 (02:49→21:31)
[2019-04-17] MEDS: Cyclobenzaprine 10 MG TAB PO PRN ×3 (02:49→21:31)
[2019-04-17 06:31] LABS: #Basophils 0.1 thou/uL (0.0-0.2); #Eosinphils 0.2 thou/uL (0.0-0.7); #Lymphocytes 2.9 thou/uL (1.20-3.40); #Monocytes 0.5 thou/uL (0.11-0.59); #Neutrophils 3.3 thou/uL (1.40-6.50); %Basophils 0.7 % (0.0-1.0); %Eosinophils 2.3 % (0.0-10.0); %Lymphocytes 42.1 % (21.0-51.0); %Monocytes 6.6 % (0.0-10.0); %Neutrophils 48.3 % (42.0-75.0); Hemoglobin 9.9 g/dL (12.0-16.0); Mean Corpuscular Hemoglobin 31.8 pg (27.0-31.0); Mean Corpuscular Volume 90.9 fL (78.0-98.0); Mean Platelet Volume 6.2 fL (7.4-10.4); Platelet Count 437 thou/uL (130-400); RBC Distribution Width 11.4 % (11.5-14.5); White Blood Cell (WBC) Count 6.9 thou/uL (4.8-10.8)
[2019-04-17 06:50] LABS: Anion Gap 11 mmol/L (10-20); BUN (Urea Nitrogen) 16 mg/dL (7.0-18.7); Calc. Creatinine Clearance 84 mL/min (70-130); Carbon Dioxide 25 mmol/L (22-29); Chloride 105 mmol/L (98-107); Estimated GFR-MDRD 72; Glucose 78 mg/dL (70-105); Potassium 4.1 mmol/L (3.5-5.1); Sodium 137 mmol/L (136-145)
[2019-04-17] MEDS: Polyethylene Glycol 3350 17 GM Packet PO SCH (07:28)
[2019-04-17] MEDS: Thyroid 30 MG TAB PO SCH (08:20)
[2019-04-17] MEDS: Gabapentin 300 MG CAP PO SCH ×3 (08:20→20:41)
[2019-04-17] MEDS: Aspirin Chewable 81 MG TAB PO SCH ×2 (08:21→20:41)
[2019-04-17] MEDS: Saccharomyces boulardii 250 MG CAP PO SCH ×2 (08:21→20:41)
[2019-04-17] MEDS: Meperidine HCl/PF 25 MG/ML VIAL IM PRN (11:11)
[2019-04-17] MEDS ORDERED: LIDOCAINE HCL 4% Topical Sol (4 ML SOLN.PK.G.) TP PRN (11:58)
--- NOTE | 2019-04-17 12:02 | PDOC.PN ---
- Subjective Encounter Start Date: 04/17/19 Encounter Start Time: 12:01 Subjective: no new problem -: Remained afebrile. - Objective Vital Signs & Weight: Vital Signs (12 hours) Temp Pulse Resp BP Pulse Ox 04/17/19 08:00 98.4 F 62 18 113/63 97 Weight Admit Weight 140 lb Weight 140 lb I&O: 04/16/19 04/17/19 04/18/19 06:59 06:59 06:59 Intake Total 990 870 Balance 990 870 Result Diagrams: 04/17/19 05:57 04/17/19 05:57 Phys Exam - Physical Examination Constitutional: NAD HEENT: PERRLA, moist MMs Neck: no JVD, supple Respiratory: no wheezing, no rales, no rhonchi, clear to auscultation bilateral Cardiovascular: RRR Gastrointestinal: soft, non-tender, no distention, positive bowel sounds Musculoskeletal: pulses present right leg and foot covered with dressing Neurological: non-focal, moves all 4 limbs Psychiatric: normal affect, A&O x 3 Dx/Plan (1) Wound infection Code(s): T14.8XXA - OTHER INJURY OF UNSPECIFIED BODY REGION, INITIAL ENCOUNTER; L08.9 - LOCAL INFECTION OF THE SKIN AND SUBCUTANEOUS TISSUE, UNSP Status: Acute (2) Cellulitis of leg, right Code(s): L03.115 - CELLULITIS OF RIGHT LOWER LIMB Status: Acute Comment: Continue Levaquin, s/p I&D due to abscess POD #5, superficial, deep and bone cx showing Serratia spp and aeromonas hydrophila, contine wound vac application, d/ c Vancomycin, plan for debridement 04/15/19 with resection of skin graft due to necrosis and application of abx beads in wound (3) Normocytic anemia Code(s): D64.9 - ANEMIA, UNSPECIFIED Status: Acute Comment: Stable currently , serial H/H (4) Open right fibular fracture Code(s): S82.401B - UNSP FRACTURE OF SHAFT OF R FIBULA, INIT FOR OPN FX TYPE I/ 2 Status: Acute Qualifiers: Fracture morphology: comminuted Comment: s/p open fibular fx s/p surgical decompression, local wound care, pain control, continue Levaquin with wound vac therapy, local WCT (5) Hypothyroidism Code(s): E03.9 - HYPOTHYROIDISM, UNSPECIFIED Status: Chronic Comment: Continue [place] Thyroid 30mg daily - Plan Continue antibiotics and wound care. -: wound coverage with skin graft contemplated * .
[2019-04-17] MEDS: Simvastatin 20 MG TAB PO SCH (20:41)
--- NOTE | 2019-04-17 22:06 | PRG ---
DATE OF SERVICE: 04/17/2019 SUBJECTIVE: Feeling well. There is less pain in the involved area. No respiratory symptoms or abdominal pain. No diarrhea. OBJECTIVE: VITAL SIGNS: Negative. LUNGS: Clear. HEART: S1 and S2. Regular rate. ABDOMEN: Soft, not distended. Looks like she is going to have another revision by Dr. Christine. LABORATORY DATA: Subsequently, her WBC count 6.9, hemoglobin 9.9, platelets 437. Chemistry is normal, and Microbiology with Serratia marcescens and Aeromonas. Currently, she is on levofloxacin intravenously to be switched to oral upon discharge plan. ASSESSMENT AND DISCUSSION: Complicated fracture with superimposed infection, right leg with Serratia and Aeromonas, status post revision. The patient likely with osteomyelitis to be continued on the oral quinolone for protracted period of time with at least 6 weeks of therapy. The end date of therapy is calculated to be May 27 approximately. Job ID: [id number]
[2019-04-18] MEDS: Acetaminophen 500 MG TAB PO SCH ×4 (00:51→16:29)
[2019-04-18] MEDS: Gabapentin 300 MG CAP PO SCH ×3 (08:55→20:41)
[2019-04-18] MEDS: Aspirin Chewable 81 MG TAB PO SCH ×2 (08:55→20:41)
[2019-04-18] MEDS: Thyroid 30 MG TAB PO SCH (08:55)
[2019-04-18] MEDS: Cyclobenzaprine 10 MG TAB PO PRN ×2 (08:56→21:48)
[2019-04-18] MEDS: Saccharomyces boulardii 250 MG CAP PO SCH ×2 (08:56→20:41)
--- NOTE | 2019-04-18 08:58 | PDOC.PN ---
- Subjective Encounter Start Date: 04/18/19 Encounter Start Time: 08:56 Subjective: new problem. denied fever, chills, worsening pain, N/V/D - Objective Vital Signs & Weight: Vital Signs (12 hours) Temp Pulse Resp BP Pulse Ox 04/18/19 08:18 98.3 F 78 14 112/55 L 96 Weight Admit Weight 140 lb Weight 140 lb I&O: 04/17/19 04/18/19 04/19/19 06:59 06:59 06:59 Intake Total 870 610 Balance 870 610 Result Diagrams: 04/17/19 05:57 04/17/19 05:57 Phys Exam - Physical Examination Constitutional: NAD HEENT: PERRLA, moist MMs Neck: no JVD, supple Respiratory: no wheezing, no rales, no rhonchi Cardiovascular: RRR, no significant murmur Gastrointestinal: soft, non-tender, no distention, positive bowel sounds Musculoskeletal: no edema, pulses present Right leg and foot covered with dressing. Neurological: non-focal, moves all 4 limbs Psychiatric: normal affect, A&O x 3 Dx/Plan (1) Wound infection Code(s): T14.8XXA - OTHER INJURY OF UNSPECIFIED BODY REGION, INITIAL ENCOUNTER; L08.9 - LOCAL INFECTION OF THE SKIN AND SUBCUTANEOUS TISSUE, UNSP Status: Acute (2) Cellulitis of leg, right Code(s): L03.115 - CELLULITIS OF RIGHT LOWER LIMB Status: Acute Comment: Continue Levaquin, s/p I&D due to abscess POD #5, superficial, deep and bone cx showing Serratia spp and aeromonas hydrophila, contine wound vac application, d/ c Vancomycin, plan for debridement 04/15/19 with resection of skin graft due to necrosis and application of abx beads in wound (3) Normocytic anemia Code(s): D64.9 - ANEMIA, UNSPECIFIED Status: Acute Comment: Stable currently , serial H/H (4) Open right fibular fracture Code(s): S82.401B - UNSP FRACTURE OF SHAFT OF R FIBULA, INIT FOR OPN FX TYPE I/ 2 Status: Acute Qualifiers: Fracture morphology: comminuted Comment: s/p open fibular fx s/p surgical decompression, local wound care, pain control, continue Levaquin with wound vac therapy, local WCT (5) Hypothyroidism Code(s): E03.9 - HYPOTHYROIDISM, UNSPECIFIED Status: Chronic Comment: Continue [place] Thyroid 30mg daily - Plan Continue antibiotics and wound care. -: Analgesic as needed. * .
[2019-04-18] MEDS: Polyethylene Glycol 3350 17 GM Packet PO SCH (09:42)
[2019-04-18] MEDS: Simvastatin 20 MG TAB PO SCH (20:41)
[2019-04-18] MEDS: traMADol HCl 50 MG TAB PO PRN (21:48)
[2019-04-19] MEDS: Acetaminophen 500 MG TAB PO SCH ×4 (00:55→16:45)
[2019-04-19] MEDS: Polyethylene Glycol 3350 17 GM Packet PO SCH (08:17)
[2019-04-19] MEDS: Saccharomyces boulardii 250 MG CAP PO SCH ×2 (08:17→21:23)
[2019-04-19] MEDS: Aspirin Chewable 81 MG TAB PO SCH ×2 (08:17→21:23)
[2019-04-19] MEDS: Gabapentin 300 MG CAP PO SCH ×2 (08:18→15:17)
[2019-04-19] MEDS: Thyroid 30 MG TAB PO SCH (08:20)
[2019-04-19] MEDS ORDERED: Lidocaine 4% Topical Sol 50 ML BOT TOP PRN (09:15)
--- NOTE | 2019-04-19 10:27 | PDOC.PN ---
- Subjective Encounter Start Date: 04/19/19 Encounter Start Time: 10:23 Patient seen and examined, no new issues. - Objective Vital Signs & Weight: Vital Signs (12 hours) Temp Pulse Resp BP Pulse Ox 04/19/19 08:00 98.0 F 88 19 103/64 98 Weight Admit Weight 140 lb Weight 140 lb I&O: 04/18/19 04/19/19 04/20/19 06:59 06:59 06:59 Intake Total 610 2750 Balance 610 2750 Result Diagrams: 04/17/19 05:57 04/17/19 05:57 Phys Exam - Physical Examination Constitutional: NAD HEENT: PERRLA, moist MMs Neck: no nodes, no JVD, supple Respiratory: no wheezing, no rales, no rhonchi Cardiovascular: RRR, no significant murmur, no rub Gastrointestinal: soft, non-tender, no distention, positive bowel sounds Musculoskeletal: no edema, pulses present right lower extremity wound dressing and vac Dx/Plan (1) Cellulitis of leg, right Code(s): L03.115 - CELLULITIS OF RIGHT LOWER LIMB Status: Acute Comment: Continue Levaquin, s/p I&D due to abscess POD #5, superficial, deep and bone cx showing Serratia spp and aeromonas hydrophila, contine wound vac application, d/ c Vancomycin, plan for debridement 04/15/19 with resection of skin graft due to necrosis and application of abx beads in wound (2) Normocytic anemia Code(s): D64.9 - ANEMIA, UNSPECIFIED Status: Acute Comment: Stable currently , serial H/H (3) Open right fibular fracture Code(s): S82.401B - UNSP FRACTURE OF SHAFT OF R FIBULA, INIT FOR OPN FX TYPE I/ 2 Status: Acute Qualifiers: Fracture morphology: comminuted Comment: s/p open fibular fx s/p surgical decompression, local wound care, pain control, continue Levaquin with wound vac therapy, local WCT (4) Wound infection Code(s): T14.8XXA - OTHER INJURY OF UNSPECIFIED BODY REGION, INITIAL ENCOUNTER; L08.9 - LOCAL INFECTION OF THE SKIN AND SUBCUTANEOUS TISSUE, UNSP Status: Acute (5) Hypothyroidism Code(s): E03.9 - HYPOTHYROIDISM, UNSPECIFIED Status: Chronic Comment: Continue [place] Thyroid 30mg daily - Plan * Wound vac in place * debridement for today * surgical closure per sx team * cont current plan of care
[2019-04-19] MEDS: Scopolamine 1.5 mg/72 hour Patch TD SCH (12:11)
[2019-04-19] MEDS: Meperidine HCl/PF 25 MG/ML VIAL IM PRN (12:12)
[2019-04-19] MEDS: Cyclobenzaprine 10 MG TAB PO PRN ×2 (12:18→21:32)
[2019-04-19] MEDS ORDERED: Gabapentin 100 MG CAP PO SCH (15:15)
[2019-04-19] MEDS: Gabapentin 100 MG CAP PO SCH (21:23)
[2019-04-19] MEDS: Simvastatin 20 MG TAB PO SCH (21:24)
[2019-04-19] MEDS: traMADol HCl 50 MG TAB PO PRN (22:00)
[2019-04-20] MEDS: Acetaminophen 500 MG TAB PO SCH ×5 (06:38→23:41)
[2019-04-20] MEDS: Aspirin Chewable 81 MG TAB PO SCH ×2 (07:58→22:53)
[2019-04-20] MEDS: Polyethylene Glycol 3350 17 GM Packet PO SCH (07:59)
[2019-04-20] MEDS: Gabapentin 100 MG CAP PO SCH ×3 (08:01→22:53)
[2019-04-20] MEDS: Saccharomyces boulardii 250 MG CAP PO SCH ×2 (08:02→22:53)
[2019-04-20] MEDS: Thyroid 30 MG TAB PO SCH (09:20)
--- NOTE | 2019-04-20 11:15 | PDOC.PN ---
- Subjective Encounter Start Date: 04/20/19 Encounter Start Time: 11:12 Patient seen and examined, no new issues or complaints, all questions answered. - Objective Vital Signs & Weight: Vital Signs (12 hours) Temp Pulse Resp BP Pulse Ox 04/20/19 08:00 99 04/20/19 07:25 98.3 F 74 18 106/71 99 Weight Admit Weight 140 lb Weight 140 lb I&O: 04/19/19 04/20/19 04/21/19 06:59 06:59 06:59 Intake Total 2750 610 Balance 2750 610 Result Diagrams: 04/17/19 05:57 04/17/19 05:57 Phys Exam - Physical Examination Constitutional: NAD HEENT: PERRLA, moist MMs, sclera anicteric Neck: no nodes, no JVD, supple Respiratory: no wheezing, no rales, no rhonchi Cardiovascular: RRR, no significant murmur, no rub Gastrointestinal: soft, non-tender, no distention, positive bowel sounds Musculoskeletal: no edema, pulses present RLe wound vac in place Dx/Plan (1) Cellulitis of leg, right Code(s): L03.115 - CELLULITIS OF RIGHT LOWER LIMB Status: Acute Comment: Continue Levaquin, s/p I&D due to abscess POD #5, superficial, deep and bone cx showing Serratia spp and aeromonas hydrophila, contine wound vac application, d/ c Vancomycin, plan for debridement 04/15/19 with resection of skin graft due to necrosis and application of abx beads in wound (2) Normocytic anemia Code(s): D64.9 - ANEMIA, UNSPECIFIED Status: Acute Comment: Stable currently , serial H/H (3) Open right fibular fracture Code(s): S82.401B - UNSP FRACTURE OF SHAFT OF R FIBULA, INIT FOR OPN FX TYPE I/ 2 Status: Acute Qualifiers: Fracture morphology: comminuted Comment: s/p open fibular fx s/p surgical decompression, local wound care, pain control, continue Levaquin with wound vac therapy, local WCT (4) Wound infection Code(s): T14.8XXA - OTHER INJURY OF UNSPECIFIED BODY REGION, INITIAL ENCOUNTER; L08.9 - LOCAL INFECTION OF THE SKIN AND SUBCUTANEOUS TISSUE, UNSP Status: Acute (5) Hypothyroidism Code(s): E03.9 - HYPOTHYROIDISM, UNSPECIFIED Status: Chronic Comment: Continue [place] Thyroid 30mg daily - Plan * cont abx * possible wound closure with graft today or tomorrow * cont wound vac for now * no changes in plan of care for now * case and plan d/w patient and family at length, they understood and agreed with this plan.
[2019-04-20] MEDS ORDERED: Bupivacaine PF 0.5% 30 ML VIAL ONE (19:18)
[2019-04-20] MEDS ORDERED: Bacitracin Zinc Ointment 30 gm TUBE ONE (19:19)
[2019-04-20] MEDS ORDERED: Thrombin 5000 UNITS/5 ML VIAL ONE ×3 (19:19→21:18)
[2019-04-20] MEDS ORDERED: Sodium Chloride 0.9% 30 ML ONE (19:19)
[2019-04-20] MEDS ORDERED: Midazolam HCl 2 mg/2 ml Vial ONE (20:04)
[2019-04-20] MEDS ORDERED: Fentanyl 100 MCG/2 ML VIAL ONE (20:05)
[2019-04-20] MEDS ORDERED: HYDROmorphone 2 MG/ML VIAL SLOW IVP PRN (21:55)
[2019-04-20] MEDS ORDERED: Meperidine HCl/PF 25 MG/ML VIAL SLOW IVP PRN (21:55)
[2019-04-20] MEDS ORDERED: Promethazine HCl 25 MG/ML VIAL IM PRN (21:55)
[2019-04-20] MEDS ORDERED: Promethazine HCl 25 MG/ML VIAL SLOW IVP PRN (21:55)
[2019-04-20] MEDS: Simvastatin 20 MG TAB PO SCH (22:53)
[2019-04-20] MEDS: Cyclobenzaprine 10 MG TAB PO PRN (23:56)
[2019-04-20] MEDS: traMADol HCl 50 MG TAB PO PRN (23:56)
[2019-04-21] MEDS: Acetaminophen 500 MG TAB PO SCH ×2 (05:11→12:00)
[2019-04-21 05:41] VITALS: TEMP 98.2
[2019-04-21] MEDS: Saccharomyces boulardii 250 MG CAP PO SCH (07:54)
[2019-04-21] MEDS: Gabapentin 100 MG CAP PO SCH ×2 (07:54→14:31)
[2019-04-21] MEDS: Aspirin Chewable 81 MG TAB PO SCH (07:55)
[2019-04-21] MEDS: traMADol HCl 50 MG TAB PO PRN ×2 (07:55→14:32)
[2019-04-21] MEDS: Ibuprofen 200 MG TAB PO PRN (07:56)
[2019-04-21] MEDS: Polyethylene Glycol 3350 17 GM Packet PO SCH (07:58)
[2019-04-21] MEDS: Thyroid 30 MG TAB PO SCH (08:51)
--- NOTE | 2019-04-21 09:00 | OP ---
DATE OF PROCEDURE: 04/20/2019 PREOPERATIVE DIAGNOSIS: Right leg 12 x 4 cm wound. POSTOPERATIVE DIAGNOSIS: Right leg 12 x 4 cm wound with no findings of infection. PROCEDURE PERFORMED: 1. Debridement of wound, deep. 2. Partial closure, total of 4 cm of wound. 3. 10 x 3.0 split-thickness skin graft harvested from the ipsilateral thigh near the previous skin graft. SPECIMEN REMOVED: None. ESTIMATED BLOOD LOSS: 25 mL. TOURNIQUET TIME: None. FINDINGS: No infection or necrosis. DESCRIPTION OF PROCEDURE: After successful general endotracheal anesthesia, the limb was prepped and draped. It included all the way up to the thigh where skin graft could be harvested as necessary. We first inspected the wound. After obtaining appropriate time-out, we used a curette to debride the previous antibiotic beads that were completely gone, although there were dissolvable. We then used a tenotomy scissor to remove some denuded fat as well as excisional technique to remove some tendon that was no longer viable. Once this was done, there was a 5 mm wide x 8 mm long/high area of exposed tendon. In order to deal with this, I removed the previous sutures, created an incision approximately 3 cm long and elevated this to make a rotational flap that would then blend into the defect and with this we were able to cover the tendon proper with muscle. We then sutured the wound accordingly, using interrupted vertical mattress sutures with 3-0 nylon. Once this was done, we measured the graft site and found that the defect was approximately 10 x 3.5 to 4 cm. For this reason, we harvested a 10 x 3 cm graft from the ipsilateral thigh dorsal to the previous graft about 1.5 cm and then meshed this 1 to 1.5, attached it to the primary wound, covered with gordon including filling in a small defect with gordon. We then placed bacitracin and Adaptic over this and donor site along with a bolster at the recipient site of ABD with mineral oil. The patient then had the thrombin and Gelfoam reapplied to the new skin graft, the skin graft then had Marcaine applied before harvesting . This greatly helped with . The patient then had the bolster completed, with 4x4s, Kerlix over the recipient site and donor site having thrombin, Gelfoam, bacitracin, Adaptic, Tegaderm about x2. There was no evidence of anesthetic or operative complication. The short-leg splint was applied and was molded by the surgeon to 0 degrees dorsiflexion and plantar flexion. Job ID: [id number]
[2019-04-21] MEDS: Cyclobenzaprine 10 MG TAB PO PRN (14:31)
[2019-04-21 14:39] VITALS: BP 108/73
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
== END 2019-04-21 15:16 | disposition home or self-care (01) | DRG 464 ==
LOC: ERS 21:58 → T4-A 04-09 00:04
PROVIDERS: ADMIT Hospitalist; ATTEND Hospitalist
PROC: 0QBJ0ZX Excision of Right Fibula, Open Approach, Diagnostic (ICD-10-PCS; 2019-04-10)
PROC: 2W1QX6Z Compression of Right Lower Leg using Pressure Dressing (ICD-10-PCS; 2019-04-10)
PROC: 0QBJ0ZZ Excision of Right Fibula, Open Approach (ICD-10-PCS; 2019-04-15)
PROC: 3E0V329 Introduction of Other Anti-infective into Bones, Percutaneous Approach (ICD-10-PCS; 2019-04-15)
PROC: 0HRKX74 Replacement of Right Lower Leg Skin with Autologous Tissue Substitute, Partial Thickness, External Approach (ICD-10-PCS; principal; 2019-04-20)
DX: M86.8X7 Other osteomyelitis, ankle and foot (principal); L03.115 Cellulitis of right lower limb; E03.9 Hypothyroidism, unspecified; D64.9 Anemia, unspecified; E78.5 Hyperlipidemia, unspecified; G44.40 Drug-induced headache, not elsewhere classified, not intractable; T40.2X5A Adverse effect of other opioids, initial encounter; Z98.51 Tubal ligation status
CPT/HCPCS: 36415; 80048; 80053; 80202; 83605; 85025; 85652; 87040; 87070; 87077; 87186; 87205; 87324; 87449; 96361; 96365; 96367; 96375; C1713; J0131; J1100; J1170; J1885; J1956; J2001; J2175; J2250; J2270; J2405; J2543; J2550; J2704; J3010; J3260; J3370; J3490; J7050; Q0162; Q0169; S0020

== ENCOUNTER 2019-05-13 16:31 | Emergency (ER) | payer SELFPAY ==
[2019-05-13 18:08] LABS: #Eosinphils 0.1 thou/uL (0.0-0.7); #Lymphocytes 2.7 thou/uL (1.20-3.40); #Monocytes 0.5 thou/uL (0.11-0.59); #Neutrophils 5.1 thou/uL (1.40-6.50); %Basophils 0.3 % (0.0-1.0); %Lymphocytes 31.7 % (21.0-51.0); %Monocytes 6.1 % (0.0-10.0); %Neutrophils 60.8 % (42.0-75.0); Hemoglobin 13.4 g/dL (12.0-16.0); Mean Corpuscular HGB CONC 34.3 g/dL (32.0-36.0); Mean Corpuscular Hemoglobin 30.6 pg (27.0-31.0); Mean Platelet Volume 6.8 fL (7.4-10.4); Platelet Count 363 thou/uL (130-400); RBC Distribution Width 11.2 % (11.5-14.5); Red Blood Cell (RBC) Count 4.39 mill/uL (4.20-5.40); White Blood Cell (WBC) Count 8.4 thou/uL (4.8-10.8)
[2019-05-13 18:28] LABS: Bilirubin Negative (Negative); Blood, Urine 1+ (Negative); Clarity Clear (Clear); Glucose, Urine (Dipstick) Normal (Negative); Leukocyte Negative Leu/uL (Negative); Nitrite Negative (Negative); Protein, Urine (Dipstick) Negative (Neg-Trace); Squamous Epithelial 0-3 HPF (0-3); Urobilinogen Normal mg/dL (Less than 2); WBC/HPF 0-3 HPF (0-3)
[2019-05-13 18:32] LABS: ALT (SGPT) 13 U/L (8-55); AST (SGOT) 18 U/L (5-34); Albumin 4.7 g/dL (3.5-5.0); Alkaline Phosphatase 56 U/L (40-150); Anion Gap 16 mmol/L (10-20); BUN (Urea Nitrogen) 15 mg/dL (7.0-18.7); Bilirubin, Total 0.3 mg/dL (0.2-1.2); Calc. Creatinine Clearance 0 mL/min (70-130); Calcium 10.2 mg/dL (7.8-10.44); Carbon Dioxide 22 mmol/L (22-29); Chloride 104 mmol/L (98-107); Estimated GFR-MDRD 73; Globulin 3.2 g/dL (2.4-3.5); Glucose 98 mg/dL (70-105); Potassium 3.5 mmol/L (3.5-5.1); Protein, Total 7.9 g/dL (6.0-8.3); Sodium 138 mmol/L (136-145)
[2019-05-13 18:36] LABS: Bacteria/HPF None Seen HPF (None Seen)
--- NOTE | 2019-05-13 18:38 | ULT ---
EXAM: RIGHT LOWER EXTREMITY VENOUS DUPLEX ULTRASOUND INCLUDING COLOR AND SPECTRAL DOPPLER IMAGIN05/13/19 HISTORY: Right lower leg surgery and injury, pain. Exam performed from groin to ankle including visualized greater saphenous, common femoral, superficia l femoral, profunda femoral, popliteal, trifurcation, and posterior tibial vein regions. There is no evidence for intraluminal thrombus. Augmentation was limited in the lower leg because of the incision /injury. Small 1.1 x 0.3 x 2.0 cm diameter fluid collection in the right medial mid-calf region which appears to be in the deep subcutaneous tissue adjacent to the underlying musculature. Etiology of this is unc ertain. IMPRESSION: No evidence for deep venous thrombosis. Small fluid collection in the medial mid-calf region of uncer tain etiology or significance, this could possibly represent a small seroma. It does not have the mehdi earance of an obvious abscess or hematoma. POS: RRE
== END 2019-05-13 19:17 | disposition home or self-care (01) ==
LOC: ERS 16:31
DX: R68.83 Chills (without fever) (principal); R51 Headache; E03.9 Hypothyroidism, unspecified; E78.5 Hyperlipidemia, unspecified; Z79.82 Long term (current) use of aspirin; Z79.899 Other long term (current) drug therapy
CPT/HCPCS: 36415; 80053; 81003; 81015; 85025; 85652; 86140; 87040

== ENCOUNTER 2020-05-11 13:46 | Observation (INO) | payer OTHER, SELFPAY ==
[~2020-05-11 13:46] MED LIST: Iopamidol-370 76% 500 ML 1 ML ONE
--- NOTE | 2020-05-11 14:19 | RAD ---
XR Chest 1 View Portable HISTORY: Dyspnea COMPARISON: 12/10/2016 FINDINGS: The heart size is normal. The lungs are well expanded without focal areas of consolidation, pneumothorax or pleural effusions. IMPRESSION: No radiographic evidence of acute cardiopulmonary process.
[2020-05-11 14:30] LABS: #Basophils 0.1 thou/uL (0.0-0.2); #Eosinphils 0.2 thou/uL (0.0-0.7); #Lymphocytes 2.5 thou/uL (1.20-3.40); #Monocytes 0.5 thou/uL (0.11-0.59); %Basophils 1.1 % (0.0-1.0); %Eosinophils 2.6 % (0.0-10.0); %Lymphocytes 34.7 % (21.0-51.0); %Monocytes 6.8 % (0.0-10.0); %Neutrophils 54.9 % (42.0-75.0); Hemoglobin 14.6 g/dL (12.0-16.0); Mean Corpuscular HGB CONC 34.4 g/dL (32.0-36.0); Mean Corpuscular Hemoglobin 30.6 pg (27.0-31.0); Mean Corpuscular Volume 88.9 fL (78.0-98.0); Mean Platelet Volume 7.2 fL (7.4-10.4); Platelet Count 324 thou/uL (130-400); RBC Distribution Width 11.4 % (11.5-14.5); Red Blood Cell (RBC) Count 4.76 mill/uL (4.20-5.40); White Blood Cell (WBC) Count 7.3 thou/uL (4.8-10.8)
[2020-05-11 14:38] LABS: BHCG - Serum Negative (NEGATIVE); Pregs Control Background? CLEAR/WHITE (CLR/WHITE); Pregs Control Bar Appear? YES (CONTROL BAR)
[2020-05-11 14:52] LABS: ALT (SGPT) 12 U/L (8-55); AST (SGOT) 16 U/L (5-34); Alkaline Phosphatase 53 U/L (40-110); Anion Gap 14 mmol/L (10-20); BUN (Urea Nitrogen) 8 mg/dL (7.0-18.7); Bilirubin, Total 0.4 mg/dL (0.2-1.2); CK (CPK) 182 U/L (29-168); Calc. Creatinine Clearance 0 mL/min (70-130); Calcium 9.5 mg/dL (7.8-10.44); Carbon Dioxide 23 mmol/L (22-29); Chloride 103 mmol/L (98-107); Estimated GFR-MDRD 61; Globulin 3.4 g/dL (2.4-3.5); Glucose 99 mg/dL (70-105); Lipase 41 U/L (8-78); Potassium 3.4 mmol/L (3.5-5.1); Protein, Total 8.4 g/dL (6.0-8.3); Sodium 137 mmol/L (136-145)
--- NOTE | 2020-05-11 15:20 | CT ---
CT PULMONARY ANGIOGRAM WITH IV CONTRAST AND 3-D POSTPROCESSING: HISTORY:Chest pain, shortness of breath, dyspnea on exertion FINDINGS: There is good contrast opacification of the pulmonary arterial vasculature without filling defects to suggest pulmonary embolism. The thoracic aorta is well opacified without aneurysm or dissection. No pleural or pericardial effusions are seen. No pneumothoraces, focal areas of consolidation or lung nodules are noted. There are degenerative changes in the spine. Upper abdominal tomograms are unremarkable. IMPRESSION: No CT evidence of pulmonary embolism.
[2020-05-11] MEDS ORDERED: Aspirin Chewable 81 MG TAB ONE (15:41)
[2020-05-11] MEDS ORDERED: Nitroglycerin 2% Ointment 1 INCH/1 GM Packet ONE (15:41)
[2020-05-11] MEDS ORDERED: Nitroglycerin 0.4 MG TAB (25 Tab Bottle) PO PRN (17:32)
[2020-05-11 17:39] LABS: Troponin I 0.011 ng/mL (< 0.028)
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
[2020-05-11] MEDS ORDERED: Melatonin 3 MG TAB PO PRN (19:51)
[2020-05-11] MEDS: Acetaminophen 500 MG TAB PO PRN (20:25)
[2020-05-11 20:39] LABS: Troponin I 0.016 ng/mL (< 0.028)
[2020-05-11] MEDS ORDERED: Ondansetron ODT 4 MG TAB PO PRN (21:02)
[2020-05-11] MEDS ORDERED: Ondansetron PF 4 MG/2 ML Vial IVP PRN (21:02)
[2020-05-11] MEDS ORDERED: Aspirin/APAP/Caffeine Tab (Excedrin Migraine) PO PRN (21:07)
[2020-05-12 04:45] LABS: #Eosinphils 0.2 thou/uL (0.0-0.7); #Lymphocytes 3.2 thou/uL (1.20-3.40); #Monocytes 0.8 thou/uL (0.11-0.59); #Neutrophils 6.8 thou/uL (1.40-6.50); %Basophils 0.4 % (0.0-1.0); %Eosinophils 2.1 % (0.0-10.0); %Lymphocytes 28.9 % (21.0-51.0); %Neutrophils 61.6 % (42.0-75.0); Hemoglobin 13.1 g/dL (12.0-16.0); Mean Corpuscular HGB CONC 34.2 g/dL (32.0-36.0); Mean Corpuscular Hemoglobin 30.8 pg (27.0-31.0); Mean Platelet Volume 7.4 fL (7.4-10.4); Platelet Count 300 thou/uL (130-400); RBC Distribution Width 11.4 % (11.5-14.5); Red Blood Cell (RBC) Count 4.25 mill/uL (4.20-5.40)
[2020-05-12 04:56] VITALS: BMI 22.7
[2020-05-12 05:11] LABS: Anion Gap 11 mmol/L (10-20); BUN (Urea Nitrogen) 9 mg/dL (7.0-18.7); Calc. Creatinine Clearance 70 mL/min (70-130); Calcium 9.6 mg/dL (7.8-10.44); Carbon Dioxide 25 mmol/L (22-29); Cardiac Risk 3.4 (Less than 4.5); Chloride 106 mmol/L (98-107); Cholesterol 206 mg/dl (< 200 Desired); Estimated GFR-MDRD 63; Glucose 94 mg/dL (70-105); HDL Cholesterol 60 mg/dL (>60 Neg Risk); LDL Cholesterol, Calculated 126 mg/dL; Potassium 4.2 mmol/L (3.5-5.1); Sodium 138 mmol/L (136-145); Triglycerides 100 mg/dL (Less than 150)
[2020-05-12] MEDS: Acetaminophen 500 MG TAB PO PRN (08:57)
[2020-05-12] MEDS ORDERED: Aspirin 325 mg Enteric Coated Tablet PO SCH (09:00)
[2020-05-12 09:58] VITALS: BP 147/64; TEMP 98.1
[2020-05-12 12:04] LABS: SARS-CoV-2 MS2 Positive; SARS-CoV-2 N Gene Positive; SARS-CoV-2 S Gene Negative; SARS-CoV-2 orf1ab Positive
[2020-05-12 12:06] LABS: SARS-CoV-2 by NAA DETECTED (NotDetected)
--- NOTE | 2020-05-12 12:12 | PDOC.CPN ---
- Subjective Date: 05/12/20 Time: 12:11 Interval history: No new issues. She has tested positive for COVID. Her chest pain is better. Breathing at baseline. - Review of Systems General: denies: fever/chills, weight/appetite/sleep changes, night sweats, fatigue Respiratory: denies: cough, congestion, shortness of breath, exercise intolerance Cardiovascular: denies: chest pain, palpitation, edema, paroxysmal nocturnal dyspnea, orthopnea Gastrointestinal: denies: nausea, vomiting, diarrhea, constipation, abd pain, GI bleeding Musculoskeletal: denies: pain, tenderness, stiffness, swelling, arthritis/ arthralgias Neurological: denies: numbness, syncope, seizure, weakness - Objective Allergies/Adverse Reactions: Allergies Allergy/AdvReac Type Severity Reaction Status Date / Time sulfamethoxazole AdvReac Mild Rash Verified 05/12/20 01:14 [From Bactrim] trimethoprim [From Bactrim] AdvReac Mild Rash Verified 05/12/20 01:14 Visit Medications: Current Medications Acetaminophen (Tylenol) 1,000 mg PO Q4H PRN PRN Reason: Headache/Fever or Pain Last Admin: 05/12/20 08:57 Dose: 1,000 mg Acetaminophen/Aspirin/Caffeine (Excedrin Migraine) 1 tab PO Q6H PRN PRN Reason: Headache Last Admin: 05/11/20 21:25 Dose: 1 tab Aspirin (Ecotrin) 325 mg PO DAILY [facility] Last Admin: 05/12/20 08:57 Dose: 325 mg Melatonin (Melatonin) 3 mg PO HS PRN PRN Reason: Insomnia Nitroglycerin (Nitrostat) 0.4 mg PO Q5MIN PRN PRN Reason: Chest Pain Ondansetron HCl (Zofran Odt) 4 mg PO Q6H PRN PRN Reason: Nausea/Vomiting Ondansetron HCl (Zofran) 4 mg IVP Q6H PRN PRN Reason: Nausea/Vomiting Last Admin: 05/11/20 21:25 Dose: 4 mg Pantoprazole Sodium (Protonix) 40 mg PO DAILY [facility] Last Admin: 05/12/20 08:57 Dose: 40 mg Vital Signs & Weight: Vital Signs Temp Pulse Resp BP Pulse Ox 05/12/20 10:24 99 05/12/20 07:54 98.1 F 63 16 147/64 H 99 05/12/20 04:50 98.3 F 61 12 121/59 L 98 Weight 132 lb 9.6 oz - Physical Exam General: alert & oriented x3 HEENT: mucus membranes moist Neck: supple neck Cardiac: regular rate and rhythm Lungs: clear to auscultation Neuro: grossly intact Abdomen: active bowel sounds Extremities: no edema Skin: clear - Labs Result Diagrams: 05/12/20 04:28 05/12/20 04:28 Troponin/CKMB Troponin I 0.016 ng/mL (< 0.028) 05/11/20 20:04 - Telemetry Sinus rhythms and dysrhythmias: sinus rhythm - Assessment/Plan Assessment/Plan: 1. Chets pain, likely from Covid-19 2. COVID-19 positive PLAN: - Echo pending. - Will sign off. Please call with any questions.
--- NOTE | 2020-05-13 03:04 | DIS ---
DATE OF ADMISSION: 05/11/2020 DATE OF DISCHARGE: 05/12/2020 HOSPITAL COURSE: Ms. Carmona is a 45-year-old female with medical history of hyperlipidemia and hypothyroidism, is now presented to the ED with a 4-day chest pain. She was diagnosed with atypical chest pain. Her HEART score was 4, so she was admitted for pending cardiac stress test. As part of the elective procedure, she was tested for COVID and was found to be positive. Cardiology was consulted and deemed the patient to be suitable for outpatient cardiac stress test after resolution of her COVID infection. The patient remained hemodynamically stable, breathing and saturating well on room air, and chest pain significantly improved on the day of discharge. PHYSICAL EXAMINATION: VITAL SIGNS: Blood pressure 147/64, pulse 63, respiratory rate 16, oxygen saturation 99% on room air, temperature 98.1 Fahrenheit. GENERAL: Lying comfortably in bed, awake and alert. HEENT: Normocephalic, atraumatic. No periauricular, postauricular, submandibular, posterior or anterior neck lymphadenopathy. No pharyngeal erythema. CARDIAC: Regular rate and rhythm. No murmurs, gallops, or rubs. LUNGS: Clear to auscultation bilaterally. No wheezing, rales, or rhonchi. ABDOMEN: Soft, nontender, nondistended. Normal bowel sounds. PSYCHIATRIC: Proper mood and affect. Alert and oriented x3. MEDICATION LIST: New medications; 1. Nitroglycerin 0.4 mg p.o. q.5 minutes p.r.n. pressure, squeezing-like chest pain. 2. Aspirin 81 mg p.o. daily. 3. Melatonin 3 mg p.o. q.h.s. p.r.n. insomnia. Continued medications; 1. Cetirizine. 2. Simvastatin. 3. [place] Thyroid. Discontinued medications; no discontinued medications. Modified medications; no modified medications. Prior to discharge, the patient was requested to remain in self isolation for 10 days or 24 hours after improvement in symptoms in case she develops COVID-19 associated symptoms. Job ID: [id number]
--- NOTE | 2020-06-03 13:48 | EKG ---
Test Reason : Blood Pressure : / mmHG Vent. Rate : 087 BPM Atrial Rate : 087 BPM P-R Int : 152 ms QRS Dur : 072 ms QT Int : 346 ms P-R-T Axes : 050 048 021 degrees QTc Int : 416 ms Normal sinus rhythm Possible Left atrial enlargement Low voltage QRS Septal infarct , age undetermined Abnormal ECG Confirmed by SATYA BECKFORD, GILES [place] ([id number]), city editor AUBREY PIZANO ([id number]) on 06/03/2020 1:47:35 PM Referred By: Confirmed By:GILES HERNADEZ MD
== END 2020-05-12 14:25 | disposition home or self-care (01) ==
LOC: ERS 13:46 → ERHOLD 15:46 → 2NO 18:19
PROVIDERS: ADMIT Internal Medicine; ATTEND Internal Medicine
DX: R07.89 Other chest pain (principal); U07.1 COVID-19; E03.9 Hypothyroidism, unspecified; E78.5 Hyperlipidemia, unspecified; Z79.82 Long term (current) use of aspirin; Z79.899 Other long term (current) drug therapy; Z88.2 Allergy status to sulfonamides; Z20.828 Contact with and (suspected) exposure to other viral communicable diseases
CPT/HCPCS: 36415; 71045; 71275; 80048; 80053; 80061; 82550; 83690; 83735; 84443; 84484; 84703; 85025; 87635; 93005; 93306; 94760; 96374; G0378; J2405; Q9967; U0003

== ENCOUNTER 2022-05-23 10:05 | Observation (INO) | payer OTHER, SELFPAY ==
[2022-05-23] MEDS ORDERED: Aspirin Chewable 81 MG TAB ONE (11:06)
[2022-05-23 11:22] LABS: #Eosinphils 0.1 thou/uL (0.0-0.7); #Lymphocytes 2.5 thou/uL (1.20-3.40); #Monocytes 0.6 thou/uL (0.11-0.59); #Neutrophils 4.7 thou/uL (1.40-6.50); %Basophils 0.6 % (0.0-1.0); %Eosinophils 0.8 % (0.0-10.0); %Lymphocytes 31.7 % (21.0-51.0); %Monocytes 7.8 % (0.0-10.0); %Neutrophils 59.1 % (42.0-75.0); Hemoglobin 13.5 g/dL (12.0-16.0); Mean Corpuscular HGB CONC 34.6 g/dL (32.0-36.0); Mean Corpuscular Hemoglobin 31.6 pg (27.0-31.0); Mean Corpuscular Volume 91.4 fL (78.0-98.0); Mean Platelet Volume 6.8 fL (7.4-10.4); Platelet Count 283 thou/uL (130-400); Red Blood Cell (RBC) Count 4.26 mill/uL (4.20-5.40); White Blood Cell (WBC) Count 7.9 thou/uL (4.8-10.8)
[2022-05-23 11:56] LABS: ALT (SGPT) 13 U/L (8-55); AST (SGOT) 21 U/L (5-34); Albumin 4.4 g/dL (3.5-5.0); Alkaline Phosphatase 53 U/L (40-110); Anion Gap 15 mmol/L (10-20); BUN (Urea Nitrogen) 16 mg/dL (7.0-18.7); Bilirubin, Total 0.5 mg/dL (0.2-1.2); Calc. Creatinine Clearance 0 mL/min (70-130); Calcium 9.3 mg/dL (7.8-10.44); Carbon Dioxide 24 mmol/L (22-29); Chloride 103 mmol/L (98-107); Estimated GFR 73; Glucose 93 mg/dL (70-105); Potassium 3.9 mmol/L (3.5-5.1); Protein, Total 7.4 g/dL (6.0-8.3); Sodium 138 mmol/L (136-145)
[2022-05-23 12:49] LABS: BHCG - Serum Negative (NEGATIVE); Pregs Control Background? CLEAR/WHITE (CLR/WHITE); Pregs Control Bar Appear? YES (CONTROL BAR)
[2022-05-23] MEDS ORDERED: Ondansetron PF 4 MG/2 ML Vial IVP PRN (13:42)
[2022-05-23 14:40] LABS: T4 6.1 ug/dL (4.87-11.72); Thyroid Stimulating Hormone 1.5533 uIU/mL (0.35-4.94)
[2022-05-23 15:15] LABS: Troponin I 0.012 ng/mL (< 0.028)
[2022-05-23 17:37] LABS: Troponin I 0.016 ng/mL (< 0.028)
[2022-05-23 17:41] VITALS: BMI 24.7
[2022-05-23] MEDS: Acetaminophen 650 MG/20.3 ML UDCUP PO PRN (20:47)
[2022-05-23 20:49] LABS: Troponin I 0.011 ng/mL (< 0.028)
[2022-05-24 00:09] VITALS: TEMP 98.4
[2022-05-24] MEDS ORDERED: Thyroid 30 MG TAB PO SCH (09:00)
[2022-05-24] MEDS ORDERED: Aspirin 81 mg Enteric Coated Tablet PO SCH (09:00)
[2022-05-24] MEDS: Acetaminophen 650 MG/20.3 ML UDCUP PO PRN (10:05)
[2022-05-24 14:04] VITALS: BP 132/74
[2022-05-24] MEDS ORDERED: Non-Formulary Item 1 EACH (Progesterone, Micronized [Progesterone] 200 MG Capsule) PO SCH (21:00)
[2022-05-24] MEDS ORDERED: Progesterone,Micronized 100 MG CAP PO SCH (21:00)
== END 2022-05-24 16:00 | disposition home or self-care (01) ==
LOC: ERS 10:05 → 2NO 17:12
PROVIDERS: ADMIT Internal Medicine; ATTEND Internal Medicine
DX: R07.89 Other chest pain (principal); R06.02 Shortness of breath; R79.89 Other specified abnormal findings of blood chemistry; E03.9 Hypothyroidism, unspecified; E78.2 Mixed hyperlipidemia; Z79.890 Hormone replacement therapy; Z79.899 Other long term (current) drug therapy; Z88.1 Allergy status to other antibiotic agents; Z88.2 Allergy status to sulfonamides; Z20.822 Contact with and (suspected) exposure to COVID-19
CPT/HCPCS: 36415; 71275; 78452; 80053; 84436; 84443; 84484; 84703; 85025; 85379; 93005; 93017; A9500; G0378; U0003; U0005